=== PATIENT | male | born 1955 | race Caucasian/White ===

== ENCOUNTER 2016-09-08 15:23 | Emergency (ER) | payer MEDICARE, OTHER ==
[2016-09-08] MEDS ORDERED: NORMAL SALINE 1,000 ML IV ONE (15:36)
[2016-09-08] MEDS ORDERED: OSELTAMIVIR PHOSPHATE 75 MG CAPSULE PO ONE ×2 (15:37→15:56)
--- NOTE | 2016-09-08 15:44 | ERNOTE ---
Medical Problem HPI - Narrative Date of Service: 09/08/16 - General Chief Complaint: Flu Symptoms Time Seen by Provider: 09/08/16 15:33 Source: patient Exam Limitations: no limitations - Immun/Allergies/Home Medications Immunizations: IMMUNIZATION HX Immunizations Up to Date Yes History of Influenza Vaccine Yes Hx Pneumococcal Vaccination Yes Allergies/Adverse Reactions: Allergies amoxicillin trihydrate [From Augmentin] Allergy (Verified 09/08/16 17:12) misoprostol [From Cytotec] Allergy (Verified 09/08/16 17:12) potassium clavulanate [From Augmentin] Allergy (Verified 09/08/16 17:12) risperidone [From Risperdal] Allergy (Verified 09/08/16 17:12) Home Medications: HOME MEDICATIONS Budesonide [Pulmicort Respules] 4 ml IH DAILY 11/27/15 [Last Taken 05/07/16] Cholecalciferol (Vitamin D3) [Vitamin D3] 5,000 unit GT DAILY 11/27/15 [Last Taken 05/07/16] Emollient Base [Vanicream] 1 appl TP DAILY 11/27/15 [Last Taken 05/07/16] Glycerin/Witch Shelia [place] [Tucks Medicated Pads] 1 appl TP PRN PRN 11/27/15 [ Last Taken 05/07/16] Ketoconazole [Nizoral Shampoo] 1 appl TP DAILY 11/27/15 [Last Taken 05/07/16] Montelukast Sodium [Singulair] 10 mg GT DAILY 11/27/15 [Last Taken 05/07/16] Mupirocin [Bactroban] 1 appl TP PRN 11/27/15 [Last Taken 05/07/16] Parab/Cet Alc/Stryl Alc/Pg/Sls [Cetaphil Gentle Skin Cleanser] 1 appl TP DAILY 11/27/15 [Last Taken 05/07/16] diphenhydrAMINE HCL [Benadryl Elixir] 30 ml GT QID 11/27/15 [Last Taken 05/07/16 ] Gly/Dimeth/Petrolat,Wht/Water [Cetaphil Cream] 1 appl TP DAILY PRN #0 jar [Last Taken 05/07/16] Potassium Chloride [Potassium Chloride 40 meq/15ml Liquid] 40 meq JT Q6H btl 06 /03/16 [Last Taken 05/07/16] Albuterol Sulfate [Albuterol Sulfate 2.5 MG/0.5ML] 2.5 mg IH Q4H PRN #0 vial.neb 03/11/16 [Last Taken 05/07/16] Atropine Sulfate [Atropine 1% Ophthalmic Solution] 3 drop SL Q6H btl 03/11/16 [ Last Taken 05/07/16] Ziprasidone HCl [Geodon] 60 mg GT DAILY capsule 03/11/16 [Last Taken 05/07/16] Calcium Carbonate 1,250 mg GT Q6H 05/08/16 [Last Taken 05/07/16] Magnesium Hydroxide [Milk Of Magnesia] 30 ml GT DAILY 05/08/16 [Last Taken 05/07] Metoclopramide HCl [Reglan Solution] 20 ml GT Q6H 05/08/16 [Last Taken 05/07/16] Omeprazole [Prilosec] 40 mg PO QAM 05/08/16 [Last Taken 05/07/16] Promethazine HCl [Phenergan Syrup] 6.25 mg GT Q6H 05/08/16 [Last Taken 05/07/16] - History of Present History Narrative: Pt. comes in with ill feeling for three days with fever and diarrhea. Pt. was diagnosed with influenza A yesterday but has not received his first dose of Tamiflu at this time. Pt. reports that he was weak this morning but not SOB and his blood pressure was 75 systolic by the tiffany and 80 systolic by EMS. Review of Systems - Review of Systems Constitutional: Present: fever, chills, weakness, fatigue, malaise EYE: Present: no symptoms reported ENT: Present: no symptoms reported Respiratory: Present: cough. Absent: shortness of breath, wheezing Cardiology: Present: no symptoms reported. Absent: chest pain, palpitations, edema Gastrointestinal/Abdominal: Present: no symptoms reported. Absent: nausea, vomiting, diarrhea, abdominal pain Genitourinary: Present: no symptoms reported Musculoskeletal: Present: no symptoms reported. Absent: back pain, joint pain Skin: Present: no symptoms reported. Absent: rash, change in color Neurological: Present: no symptoms reported. Absent: headache, dizziness/light- headedness, numbness, tingling All Other Systems: All systems neg except as marked - Patient's Past Medical History Patient History - Medical: Anemia, Diabetes Type 2, Depression, Seizures Patient History - Cardiac/Respiratory: Asthma, CVA/Stroke, Deep Vein Thrombosis , Pneumonia, Home O2 Use Patient History - Cancer: No Hx of Cancer Patient History - Surgical Procedures: Colonoscopy, EGD, Other - Family History Father Family History - Medical: Family History - Cardiac/Respiratory: History Unknown Family History - Cancer: Lung, Other - heart problems Mother Family History - Medical: Arthritis Sister Family History - Medical: Other - Social History Living Situations: senior care Smoking Status: Former smoker Alcohol Use: none Drug Use: none Physical Exam - Physical Exam General Appearance: Present: wd/wn, alert, no apparent distress Eye Exam: Normal inspection: bilateral, PERRL: bilateral, EOMI: bilateral Ears, Nose, Throat: Present: normal ENT inspection, hearing grossly normal, normal pharynx Neck: Present: normal inspection, nontender. Absent: lymphadenopathy (R), lymphadenopathy (L) Respiratory: Present: no respiratory distress, normal breath sounds, no accessory muscle use, chest nontender, crackles - coarse upper airway noises. Absent: rales, rhonchi, stridor, wheezing Cardiovascular/Chest: Present: regular rate, rhythm, no murmur, normal peripheral pulses Gastrointestinal/Abdominal: Present: normal bowel sounds, nontender, nondistended, soft, no organomegaly Back Exam: Present: normal inspection, normal range of motion, no CVA tenderness , no vertebral tenderness Extremity Exam: Present: normal inspection, non-tender, no edema, normal range of motion Neurological Exam: Present: alert, oriented, normal mood/affect, motor weakness - previous CVA residual Skin Exam: Present: warm/dry, pallor ED Progress - Date and Time Seen: Date and Time: 09/08/16 17:40 Pt. blood pressure has been stable WNL while here corrected dehydration and acute fluid loss. Believe diarrhea is caused by Influenza A and will have pt. follow up with PCP this week. - Results and Orders Patient's Lab Results:: I have reviewed the patient's lab results. - Vital Signs Patient's Vital Signs:: I have reviewed the patient's vital signs. Vital Signs: Vital Signs 09/08/16 15:24 Temperature 37.6 C H Pulse Rate 104 H Respiratory 18 Rate Blood Pressure 106/71 O2 Sat by Pulse 94 Oximetry - X-Ray X-Ray #1 X-Ray: chest Interpretation: Interp. by me X-ray Comments: No consolidation, no infiltrate - Progress/Reassessment Chief Complaint: Flu Symptoms Progress:: Improved Departure - Departure Clinical Impression: Influenza A Disposition: [facility] Condition: Good Instructions: Influenza, Adult, [id number] Additional Instructions: Please continue Tamiflu as ordered. Follow up with PCP in 2-3 days.
[2016-09-08 16:04] LABS: Hematocrit 38.2 % (42.0-52.0); Hemoglobin 12.2 gm/dL (13.5-18.0); Mean Cell Volume 85.7 fl (78-100); Mean Corpuscular Hemoglobin 27.4 pg (27-31); Mean Corpuscular Hgb Conc 31.9 g/dl (32-36); Mean Platelet Volume 11.9 fl (6.0-9.5); Neutrophil # 4.9 K/mm3 (1.3-6.0); Neutrophil % 79.4 % (42-75.0); Platelet Count 185 K/mm3 (150-450); Red Blood Count 4.46 M/mm3 (4.7-6.0); Red Cell Distribution Width 14.7 % (11.5-14.0); White Blood Count 6.2 K/mm3 (4.0-10.5)
[2016-09-08 16:19] LABS: Albumin * 2.8 gm/dl (3.4-5.0); Anion Gap 16.6 mmol/L (6.8-13.8); BUN/Creatinine Ratio 21.7 (9.0-21.6); Bilirubin, Total 0.3 mg/dL (0.0-1.1); Ca. Corrected For Albumin 9.2 mg/dL (8.4-10.2); Calcium * 8.6 mg/dL (7.9-10.9); Carbon Dioxide 22.3 mmol/L (24-32.6); Potassium 3.9 mmol/L (3.4-4.6); Total Protein 6.6 gm/dL (6.2-8.2)
[2016-09-08 16:44] LABS: Urine Bilirubin Negative (NEGATIVE); Urine Ketone Negative (NEGATIVE); Urine Nitrite Negative (NEGATIVE); Urine Protein 30 mg/dL (NEGATIVE); Urine Urobilinogen Normal (NORMAL); Urine pH 8.5 pH (5.0-7.0)
[2016-09-08 17:07] LABS: Urine Appearance Slightly Cloudy; Urine Bacteria None Seen; Urine Blood 10 /ul (NEGATIVE); Urine Color Yellow; Urine RBC 0-5 /hpf (0-5); Urine WBC None Seen /hpf (0-5)
[2016-09-08 23:11] VITALS: BP 99/77
== END 2016-09-08 18:30 ==
LOC: ER 15:23
DX: J09.X2 Influenza due to identified novel influenza A virus with other respiratory manifestations (principal); Z87.891 Personal history of nicotine dependence

== ENCOUNTER 2016-11-26 07:22 | Emergency (ER) | payer MEDICARE, OTHER ==
--- OUTSIDE RECORDS SUMMARY | 2016-11-26 07:32 | XMS REPORT | Continuity of Care Document ---
:1955 Author Organization [facility] ([facility]) Address [address] [place] [address] Phone [phone] Care Team Providers Name Role Phone Xavier Burk Primary Care Provider [phone] Source Comments This disclosure is being made pursuant to the Care Everywhere program, applicable federal and state laws, and may not contain all informaitonavailable regarding this patient.[facility] ([facility]) Active Allergies and Adverse Reactions Allergen Noted Date Severity Reactions Comments Risperidone 11/20/2010 Unknown Current Medications Prescription Sig. Disp. Refills Start Date End Date Status albuterol (PROVENTIL) 2.5 Use 2.5 mg by Active mg/3 mL inhalation inhalation every solution 4 hours. doxepin (SINEQUAN) 10 mg Take 10 mg by Active capsule mouth at bedtime. fluticasone (FLONASE) 50 use 1 [place] into Active mcg/Actuation nasal spray each nostril 2 times daily. hydrochlorothiazide Take 12.5 mg by Active (HYDRODIURIL) 12.5 mg mouth daily. tablet LORazepam (ATIVAN) 0.5 mg Take 0.5 mg by Active tablet mouth 2 times daily. mirtazapine (REMERON) 7.5 Take 7.5 mg by Active mg tablet mouth daily. senna-docusate (SENOKOT-S) Take 1 Tab by Active 8.6-50 mg per tablet mouth daily. tamsulosin (FLOMAX) 0.4 mg Take 0.4 mg by Active ER capsule mouth daily. ziprasidone (GEODON) 60 mg Take 60 mg by Active cap mouth daily. misoPROStol 200 mcg tablet Take 1 Tab by 120 Tab 0 12/02/2010 Active mouth 4 times daily. Indications: Gastric Ulcer omeprazole (PRILOSEC) 2 Take 10 mL by 300 mL 11 12/02/2010 Active mg/mL Liqd liquid mouth daily. Indications: Gastric Ulcer Active Problems Problem Noted Date Cerebral palsy 11/29/2010 GI bleed 11/29/2010 Gastric ulcer 11/29/2010 Factor V Leiden mutation 11/29/2010 Social History Tobacco Use Types Packs/Day Years Used Date Never Assessed Last Filed Vital Signs Vital Sign Reading Time Taken Blood Pressure 104/71 12/03/2010 4:00 AM CDT Pulse 92 12/03/2010 4:00 AM CDT Temperature 37 C (98.6 F) 12/03/2010 4:00 AM CDT Respiratory Rate 20 12/03/2010 4:00 AM CDT Height 1.73 m (5' 8.11") 11/21/2010 5:35 PM CDT Weight 87.8 kg (193 lb 9 oz) 12/01/2010 10:00 AM CDT Body Mass Index 29.34 12/01/2010 10:00 AM CDT Oxygen Saturation 96% 12/03/2010 4:00 AM CDT Plan of Care Health Maintenance Due Date Last Done Comments HCV Screening 1955 Hepatitis B Vaccine (1 of 3 - Primary Series) 1955 Tdap Vaccine 1966 Lipid Disorder Screening 1973 Td Vaccine 1973 Colonoscopy 02/08/2005 Prostate Cancer Screening 2005 Zoster Vaccine 2015 Influenza Vaccine: Seasonal (#1) 03/30/2016 Results from Last 3 Months Not on file
--- NOTE | 2016-11-26 08:03 | ERNOTE ---
Medical Problem HPI - General Chief Complaint: General Assessment Time Seen by Provider: 11/26/16 07:25 Source: patient Exam Limitations: physical impairment - Immun/Allergies/Home Medications Immunizations: IMMUNIZATION HX Immunizations Up to Date Yes History of Influenza Vaccine Yes Hx Pneumococcal Vaccination No Allergies/Adverse Reactions: Allergies amoxicillin trihydrate [From Augmentin] Allergy (Verified 09/08/16 17:12) misoprostol [From Cytotec] Allergy (Verified 09/08/16 17:12) potassium clavulanate [From Augmentin] Allergy (Verified 09/08/16 17:12) risperidone [From Risperdal] Allergy (Verified 09/08/16 17:12) Home Medications: HOME MEDICATIONS Budesonide [Pulmicort Respules] 4 ml IH DAILY 11/27/15 [Last Taken 05/07/16] Cholecalciferol (Vitamin D3) [Vitamin D3] 5,000 unit GT DAILY 11/27/15 [Last Taken 05/07/16] Emollient Base [Vanicream] 1 appl TP DAILY 11/27/15 [Last Taken 05/07/16] Glycerin/Witch Shelia [place] [Tucks Medicated Pads] 1 appl TP PRN PRN 11/27/15 [ Last Taken 05/07/16] Ketoconazole [Nizoral Shampoo] 1 appl TP DAILY 11/27/15 [Last Taken 05/07/16] Montelukast Sodium [Singulair] 10 mg GT DAILY 11/27/15 [Last Taken 05/07/16] Mupirocin [Bactroban] 1 appl TP PRN 11/27/15 [Last Taken 05/07/16] Parab/Cet Alc/Stryl Alc/Pg/Sls [Cetaphil Gentle Skin Cleanser] 1 appl TP DAILY 11/27/15 [Last Taken 05/07/16] diphenhydrAMINE HCL [Benadryl Elixir] 30 ml GT QID 11/27/15 [Last Taken 05/07/16 ] Gly/Dimeth/Petrolat,Wht/Water [Cetaphil Cream] 1 appl TP DAILY PRN #0 jar [Last Taken 05/07/16] Potassium Chloride [Potassium Chloride 40 meq/15ml Liquid] 40 meq JT Q6H btl [Last Taken 05/07/16] Albuterol Sulfate [Albuterol Sulfate 2.5 MG/0.5ML] 2.5 mg IH Q4H PRN #0 vial.neb 03/11/16 [Last Taken 05/07/16] Atropine Sulfate [Atropine 1% Ophthalmic Solution] 3 drop SL Q6H btl 03/11/16 [ Last Taken 05/07/16] Ziprasidone HCl [Geodon] 60 mg GT DAILY capsule 03/11/16 [Last Taken 05/07/16] Calcium Carbonate 1,250 mg GT Q6H 05/08/16 [Last Taken 05/07/16] Magnesium Hydroxide [Milk Of Magnesia] 30 ml GT DAILY 05/08/16 [Last Taken 05/07] Metoclopramide HCl [Reglan Solution] 20 ml GT Q6H 05/08/16 [Last Taken 05/07/16] Omeprazole [Prilosec] 40 mg PO QAM 05/08/16 [Last Taken 05/07/16] Promethazine HCl [Phenergan Syrup] 6.25 mg GT Q6H 05/08/16 [Last Taken 05/07/16] - History of Present History Narrative: Pt brought by EMS from [facility] with report of PEG tube being displaced overnight. Unknown time of removal. Pt denies symptoms Review of Systems - Narrative Narrative: Pt decreased mental capability and it is difficult to get information out of him. - Review of Systems Constitutional: Present: no symptoms reported EYE: Present: no symptoms reported ENT: Present: no symptoms reported Respiratory: Present: no symptoms reported Cardiology: Present: no symptoms reported - Patient's Past Medical History Patient History - Medical: Anemia, Diabetes Type 2, Depression, Seizures Patient History - Cardiac/Respiratory: Pneumonia Patient History - Cancer: No Hx of Cancer Patient History - Surgical Procedures: Colonoscopy, EGD, Other Patient History - Other: None - Family History Father Family History - Medical: Family History - Cardiac/Respiratory: History Unknown Mother Family History - Medical: Arthritis Sister Family History - Medical: Other - Social History Living Situations: fdc Abuse History: No History of abuse Psych History: Hx of Depression, Hx of Schizophrenia, Current tx/ever been on anti-depressants or anti-anxiety meds Alcohol Use: none Drug Use: none - Immunizations Immunizations Up to Date: Yes Hx Pneumococcal Vaccination: No History of Influenza Vaccine: Yes Physical Exam - Physical Exam General Appearance: Present: wd/wn, alert, no apparent distress Respiratory: Present: no respiratory distress, normal breath sounds Cardiovascular/Chest: Present: regular rate, rhythm Gastrointestinal/Abdominal: Present: normal bowel sounds, nontender, other - Stoma for peg tube in good condition, slightly irritated, slightly open, no bleeding or purlence. ED Progress - Vital Signs Vital Signs: Vital Signs 11/26/16 07:32 Temperature 36.7 C Pulse Rate 72 Respiratory 17 Rate Blood Pressure 100/66 O2 Sat by Pulse 95 Oximetry - Progress/Reassessment Chief Complaint: General Assessment Progress Note-Subjective: 11/26/16 07:51 Spoke with pt's PCP Dr. Burk. He believes that the patient has a "special type" of tube but does not know specifics off the top of his head. Believes that yesterday they had a replacement left but he is not sure. Nursing contacting [facility] for more information. He had 24f 10 cc PEG tube but they do not have any left. - Transfer of Care Physician Sign Out: Bi Johansen Receiving Physician: Delta Crowder - PEG tube Procedures Additional Procedures: gastric tube replacement - Placed 16f rosas catheter to keep the stoma open until PEG tube could be located. No complications Complications: Pt abby procedure well Departure - Departure Clinical Impression: Displacement of gastrointestinal device Qualifiers: GI device type detail: other GI device Encounter type: initial encounter Qualified Code(s): T85.528A - Displacement of other gastrointestinal prosthetic devices, implants and grafts, initial encounter
[2016-11-26 12:13] VITALS: BP 92/63
== END 2016-11-26 12:22 ==
LOC: ER 07:22
PROC: 3E0G7KZ Introduction of Other Diagnostic Substance into Upper GI, Via Natural or Artificial Opening (ICD-10-PCS; principal; 2016-11-26)
PROC: 0WHP33Z Insertion of Infusion Device into Gastrointestinal Tract, Percutaneous Approach (ICD-10-PCS; 2016-11-26)
PROC: BD12YZZ Fluoroscopy of Stomach using Other Contrast (ICD-10-PCS; 2016-11-26)
DX: T85.528A Displacement of other gastrointestinal prosthetic devices, implants and grafts, initial encounter (principal)

== ENCOUNTER 2017-03-21 16:31 | Emergency (ER) | payer MEDICARE, OTHER ==
--- NOTE | 2017-03-21 17:26 | ERNOTE ---
Medical Problem HPI - Narrative Date of Service: 03/21/17 - General Chief Complaint: General Assessment Time Seen by Provider: 03/21/17 17:23 Source: patient Exam Limitations: no limitations - Immun/Allergies/Home Medications Immunizations: IMMUNIZATION HX Immunizations Up to Date Yes History of Influenza Vaccine Yes Hx Pneumococcal Vaccination No Allergies/Adverse Reactions: Allergies amoxicillin trihydrate [From Augmentin] Allergy (Verified 11/26/16 09:39) misoprostol [From Cytotec] Allergy (Verified 11/26/16 09:39) potassium clavulanate [From Augmentin] Allergy (Verified 11/26/16 09:39) risperidone [From Risperdal] Allergy (Verified 11/26/16 09:39) Home Medications: HOME MEDICATIONS Budesonide [Pulmicort Respules] 4 ml IH DAILY 11/27/15 [Last Taken 05/07/16] Cholecalciferol (Vitamin D3) [Vitamin D3] 5,000 unit GT DAILY 11/27/15 [Last Taken 05/07/16] Albuterol Sulfate [Albuterol Sulfate 2.5 MG/0.5ML] 2.5 mg IH Q4H PRN #0 vial.neb 03/11/16 [Last Taken 05/07/16] Calcium Carbonate 5 ml GT QID 05/08/16 [Last Taken 05/07/16] Acetaminophen [Tylenol] 650 mg PO Q4H PRN 11/26/16 [Last Taken Unknown] Acetylcysteine [Mucomyst 10%] 4 ml NEB QID 11/26/16 [Last Taken Unknown] Activated Charcoal [CharcoCaps] 260 mg PEG QID 11/26/16 [Last Taken Unknown] Aspirin [Aspir-Low] 81 mg PEG DAILY 11/26/16 [Last Taken Unknown] Atropine Sulfate [Atropine 1% Ophthalmic Solution] 1 drop SL QID 11/26/16 [Last Taken Unknown] Docusate Sodium [Doc-Q-Lace] 100 mg PEG BID PRN 11/26/16 [Last Taken Unknown] Furosemide [Lasix] 40 mg PO DAILY 11/26/16 [Last Taken Unknown] Magnesium Hydroxide [Milk Of Magnesia] 30 ml PEG HS 11/26/16 [Last Taken Unknown ] Metoclopramide HCl [Reglan Solution] 5 ml PEG Q6H 11/26/16 [Last Taken Unknown] Montelukast Sodium [Singulair] 10 mg PEG DAILY 11/26/16 [Last Taken Unknown] Nutritional Supplement [Osmolite 1.2 [place]] 0 ml PEG Q4H 11/26/16 [Last Taken Unknown] Omeprazole [Prilosec] 10 ml PEG DAILY 11/26/16 [Last Taken Unknown] Polyethylene Glycol 3350 [Miralax] 17 gm PEG DAILY PRN 11/26/16 [Last Taken Unknown] Potassium Chloride [Potassium Chloride 40 meq/15ml Liquid] 15 ml PEG QID [Last Taken Unknown] Promethazine HCl 5 ml PEG Q6H PRN 11/26/16 [Last Taken Unknown] Saliva Stimulant Agents Comb.3 [Biotene Moisturizing Mouth] 44.3 ml MM DAILY PRN 11/26/16 [Last Taken Unknown] Simethicone [Infants' Gas Relief] 4.8 ml PEG QID 11/26/16 [Last Taken Unknown] Sucralfate [Carafate Suspension] 10 ml PEG QID 11/26/16 [Last Taken Unknown] Ziprasidone HCl 40 mg PEG DAILY 11/26/16 [Last Taken Unknown] - History of Present History Narrative: Concern for feeding tube placement, but just fed through tube an hour ago with no problem. Timing: other Severity: mild Modifying Factors - (Improves): Present: other Modifying Factors - (Worsens): Present: other Review of Systems - Review of Systems Constitutional: Present: no symptoms reported EYE: Present: no symptoms reported ENT: Present: no symptoms reported Respiratory: Present: no symptoms reported Cardiology: Present: no symptoms reported Gastrointestinal/Abdominal: Present: See HPI Genitourinary: Present: no symptoms reported Musculoskeletal: Present: no symptoms reported Skin: Present: no symptoms reported Neurological: Present: no symptoms reported Endocrine: Present: no symptoms reported Hematologic/Lymphatic: Present: no symptoms reported Psych: Present: no symptoms reported All Other Systems: All systems neg except as marked - Patient's Past Medical History Patient History - Medical: Anemia, Diabetes Type 2, Depression, Seizures Patient History - Cardiac/Respiratory: Pneumonia Patient History - Cancer: No Hx of Cancer Patient History - Surgical Procedures: Colonoscopy, EGD, Other Patient History - Other: None - Family History Father Family History - Medical: Family History - Cardiac/Respiratory: History Unknown Mother Family History - Medical: Arthritis Sister Family History - Medical: Other - Social History Living Situations: penitentiary Abuse History: No History of abuse Psych History: Hx of Depression, Hx of Schizophrenia, Current tx/ever been on anti-depressants or anti-anxiety meds Alcohol Use: none Drug Use: none - Immunizations Immunizations Up to Date: Yes Hx Pneumococcal Vaccination: No History of Influenza Vaccine: Yes Physical Exam - Physical Exam General Appearance: Present: wd/wn, alert, no apparent distress Head Exam: Present: normal inspection, no evidence of injury Eye Exam: Normal inspection: bilateral, PERRL: bilateral, EOMI: bilateral Ears, Nose, Throat: Present: normal ENT inspection Neck: Present: normal inspection Respiratory: Present: no respiratory distress, normal breath sounds Cardiovascular/Chest: Present: regular rate, rhythm, no murmur Gastrointestinal/Abdominal: Present: normal bowel sounds, nontender, nondistended, soft, no organomegaly, other - feeding tube Back Exam: Present: normal inspection Extremity Exam: Present: normal inspection, no edema Neurological Exam: Present: alert, oriented, other - odd mood and affect, spasticiy due to cerebral palsy Skin Exam: Present: normal color, warm/dry ED Progress - Vital Signs Patient's Vital Signs:: I have reviewed the patient's vital signs. Vital Signs: Vital Signs 03/21/17 16:53 Temperature 36.9 C Pulse Rate 81 Respiratory 16 Rate Blood Pressure 95/58 O2 Sat by Pulse 95 Oximetry - CT/Ultrasound CT/Ultrasound Narrative: I have reviewed the radiologist's CT scan reports, which describes the feeding tube in the correct place, and the large bowel as the same as always. - Progress/Reassessment Chief Complaint: General Assessment Progress:: Unchanged Departure - Departure Clinical Impression: Megacolon, acquired, functional Disposition: Home self-care Condition: Good Instructions: Eating Disorders Additional Instructions: Feeding tube in correct position, may be discharged Referrals: Xavier Paniagua MD [Primary Care Provider] -
[2017-03-21] MEDS ORDERED: SIMETHICONE 80 MG TAB.CHEW ONE (18:54)
[2017-03-21 19:10] VITALS: BP 115/84
== END 2017-03-21 19:25 | disposition home or self-care (01) ==
LOC: ER 16:31
DX: K59.39 Other megacolon (principal)

== ENCOUNTER 2017-03-28 11:20 | Emergency (ER) | payer MEDICARE, OTHER ==
--- NOTE | 2017-03-28 12:26 | ERNOTE ---
Medical Problem HPI - Narrative Date of Service: 03/28/17 - General Chief Complaint: General Assessment Time Seen by Provider: 03/28/17 11:23 Source: EMS Exam Limitations: physical impairment - Immun/Allergies/Home Medications Immunizations: IMMUNIZATION HX Immunizations Up to Date Yes History of Influenza Vaccine Yes Hx Pneumococcal Vaccination No Allergies/Adverse Reactions: Allergies amoxicillin trihydrate [From Augmentin] Allergy (Verified 11/26/16 09:39) misoprostol [From Cytotec] Allergy (Verified 11/26/16 09:39) potassium clavulanate [From Augmentin] Allergy (Verified 11/26/16 09:39) risperidone [From Risperdal] Allergy (Verified 11/26/16 09:39) Home Medications: HOME MEDICATIONS Budesonide [Pulmicort Respules] 4 ml IH DAILY 11/27/15 [Last Taken 05/07/16] Cholecalciferol (Vitamin D3) [Vitamin D3] 5,000 unit GT DAILY 11/27/15 [Last Taken 05/07/16] Albuterol Sulfate [Albuterol Sulfate 2.5 MG/0.5ML] 2.5 mg IH Q4H PRN #0 vial.neb 03/11/16 [Last Taken 05/07/16] Calcium Carbonate 5 ml GT QID 05/08/16 [Last Taken 05/07/16] Acetaminophen [Tylenol] 650 mg PO Q4H PRN 11/26/16 [Last Taken Unknown] Acetylcysteine [Mucomyst 10%] 4 ml NEB QID 11/26/16 [Last Taken Unknown] Activated Charcoal [CharcoCaps] 260 mg PEG QID 11/26/16 [Last Taken Unknown] Aspirin [Aspir-Low] 81 mg PEG DAILY 11/26/16 [Last Taken Unknown] Atropine Sulfate [Atropine 1% Ophthalmic Solution] 1 drop SL QID 11/26/16 [Last Taken Unknown] Docusate Sodium [Doc-Q-Lace] 100 mg PEG BID PRN 11/26/16 [Last Taken Unknown] Furosemide [Lasix] 40 mg PO DAILY 11/26/16 [Last Taken Unknown] Magnesium Hydroxide [Milk Of Magnesia] 30 ml PEG HS 11/26/16 [Last Taken Unknown ] Metoclopramide HCl [Reglan Solution] 5 ml PEG Q6H 11/26/16 [Last Taken Unknown] Montelukast Sodium [Singulair] 10 mg PEG DAILY 11/26/16 [Last Taken Unknown] Nutritional Supplement [Osmolite 1.2 Cholo] 0 ml PEG Q4H 11/26/16 [Last Taken Unknown] Omeprazole [Prilosec] 10 ml PEG DAILY 11/26/16 [Last Taken Unknown] Polyethylene Glycol 3350 [Miralax] 17 gm PEG DAILY PRN 11/26/16 [Last Taken Unknown] Potassium Chloride [Potassium Chloride 40 meq/15ml Liquid] 15 ml PEG QID [Last Taken Unknown] Promethazine HCl 5 ml PEG Q6H PRN 11/26/16 [Last Taken Unknown] Saliva Stimulant Agents Comb.3 [Biotene Moisturizing Mouth] 44.3 ml MM DAILY PRN 11/26/16 [Last Taken Unknown] Simethicone [Infants' Gas Relief] 4.8 ml PEG QID 11/26/16 [Last Taken Unknown] Sucralfate [Carafate Suspension] 10 ml PEG QID 11/26/16 [Last Taken Unknown] Ziprasidone HCl 40 mg PEG DAILY 11/26/16 [Last Taken Unknown] - History of Present History Narrative: Patient has long standing G-tube. This was pulled out today. Pt cannot provide any history. No fever or distress. Timing: other - G-tube came out Modifying Factors - (Improves): Present: other - nothing Modifying Factors - (Worsens): Present: other - nothing Review of Systems - Narrative Narrative: unable given chronic condition - Patient's Past Medical History Patient History - Medical: Anemia, Anxiety, Diabetes Type 2, Depression, Seizures Patient History - Cardiac/Respiratory: Pneumonia Patient History - Cancer: No Hx of Cancer Patient History - Surgical Procedures: Colonoscopy, EGD, Other Patient History - Other: None - Family History Father Family History - Medical: Family History - Cardiac/Respiratory: History Unknown Mother Family History - Medical: Arthritis Sister Family History - Medical: Other - Social History Living Situations: longterm Abuse History: No History of abuse Psych History: Hx of Anxiety, Hx of Depression, Hx of Schizophrenia, Current tx/ ever been on anti-depressants or anti-anxiety meds Smoking Status: Former smoker Alcohol Use: none Drug Use: none - Immunizations Immunizations Up to Date: Yes Hx Pneumococcal Vaccination: No History of Influenza Vaccine: Yes Physical Exam - Physical Exam General Appearance: Present: alert, no apparent distress Respiratory: Present: no respiratory distress Cardiovascular/Chest: Present: regular rate, rhythm Gastrointestinal/Abdominal: Present: normal bowel sounds, soft, other - G-tube site without G-tube in place Neurological Exam: Present: alert Skin Exam: Present: warm/dry ED Progress - Vital Signs Patient's Vital Signs:: I have reviewed the patient's vital signs. Vital Signs: Vital Signs 03/28/17 11:24 Temperature 37.5 C Pulse Rate 93 Respiratory 17 Rate Blood Pressure 107/68 O2 Sat by Pulse 94 Oximetry - Progress/Reassessment Chief Complaint: General Assessment Progress Note-Subjective: 03/28/17 12:[address] Liz in the ED. He will arrange further G-tube management. Departure - Departure Clinical Impression: Gastrostomy tube dependent Disposition: Home self-care Condition: Stable Additional Instructions: You will be notified when the appropriate G-Tube arrives. Return for any problems.
[2017-03-28 12:32] VITALS: BP 99/66
--- NOTE | 2017-03-28 12:32 | PN ---
Dictated Progress Note - Date and Time Seen: Date: 03/28/17 Time: 12:28 - Progress Note Narrative: Vital Signs - Last Taken Temp 37.5 C 03/28/17 11:24 Pulse 93 03/28/17 11:24 Resp 17 03/28/17 11:24 BP 107/68 03/28/17 11:24 Pulse Ox 94 03/28/17 11:24 The patient is a 62-year-old male, well-known to me, with a long-standing feeding tube. He is currently at the [facility]. His feeding tube came out today and he was brought to the ER. The balloon on the tube leaks and cannot be inflated. A small Alex catheter was placed in the stomach and I was asked to see the patient. Historically, the patient initially had placement of a PEG gastrostomy tube due to chronic aspiration and difficulty swallowing. He has an element of gastroparesis, and because of repeated vomiting, the gastric feeding tube was exchanged for a low profile gastrojejunostomy tube which was passed with EGD. This was done in November 2015. In reviewing old x-rays, the gastrojejunostomy tube was in place on x-ray in February 2016, however beginning in October of this year there are a series of radiology exams obtained for tube placement which demonstrated only a gastrostomy-type tube. Most recently on 03/21/[address] scan was obtained to verify gastrostomy tube placement--- apparently the tube that malfunctioned today. On exam there is minimal irritation around the tube site. The previously damaged area on the anterior abdominal wall remains healed. PROCEDURE: Replacement of gastrostomy tube. The Alex catheter was removed and a Eulogio-Bailey G 24fr low profile gastrostomy tube placed and the balloon inflated. The stem on this tube is 1.7 cm (the patient usually has a 3 cm stem) however the device will rotate and skin pressure does not appear to be excessive. A split 2 x 2 was placed for dressing. RECOMMEND: The appliances to care for the tube were sent back to the [facility] with the patient. The tube may be used as usual. I will contact materials management and order in a new tube with a 3 cm stem. We will contact the [facility] when that arrives, and the tube can be exchanged in the office.
== END 2017-03-28 12:30 ==
LOC: ER 11:20
PROC: 2W03XYZ Change Other Device on Abdominal Wall (ICD-10-PCS; principal; 2017-03-28)
DX: K94.23 Gastrostomy malfunction (principal)

== ENCOUNTER 2018-12-22 02:35 | Inpatient (IN) ==
[2018-12-22] MEDS ORDERED: ALBUTEROL SULFATE 2.5 MG/0.5 ML VIAL.NEB IH ONE (02:39)
--- NOTE | 2018-12-22 02:54 | ERNOTE ---
Fever HPI - General Chief Complaint: Fever Stated Complaint: sob Time Seen by Provider: 12/22/18 02:39 Source: EMS, group home records Exam Limitations: clinical condition, physical impairment - Immunization Immunizations: IMMUNIZATION HX Immunizations Up to Date Yes History of Influenza Vaccine Yes Hx Pneumococcal Vaccination No - History of Present Illness Initial Comments: Pt brought here from the [facility] with complaint of fever. Pt has had history of aspiration pneumonia. Timing/Duration: this morning Fever Severity/Quality: greater than 100.5 F Fever Therapy LIFESTYLE DIRECTOR: Tylenol Associated Symptoms: Present: cough Allergies levofloxacin [From Levaquin] Allergy (Mild, Verified 12/22/18 02:42) amoxicillin trihydrate [From Augmentin] Allergy (Verified 12/22/18 02:42) misoprostol [From Cytotec] Allergy (Verified 12/22/18 02:42) potassium clavulanate [From Augmentin] Allergy (Verified 12/22/18 02:42) risperidone [From Risperdal] Allergy (Verified 12/22/18 02:42) Home Medications Medication Instructions Recorded Last Taken Calcium Carbonate 5 ml PEG QID 05/08/16 05/07/16 Nutritional Supplement [Osmolite 0 ml PEG Q4H 11/26/16 Unknown 1.2 Cholo] Saliva Stimulant Agents Comb.3 44.3 ml MM DAILY PRN 11/26/16 Unknown [Biotene Moisturizing Mouth] Simethicone [Infants' Gas Relief] 4.8 ml PEG QID 11/26/16 Unknown cetirizine 10 mg tablet 10 mg PEG DAILY 03/18/18 Unknown cholecalciferol (vitamin D3) 5,000 5,000 unit PEG DAILY 03/18/18 Unknown unit capsule docusate sodium 50 mg/5 mL oral 200 mg PEG QID ml 03/18/18 Unknown liquid furosemide 40 mg tablet 40 mg PEG DAILY 03/18/18 Unknown omeprazole magnesium 2.5 mg oral 2.5 mg PEG DAILY ea 03/18/18 Unknown suspension,delayed release ziprasidone 20 mg capsule 20 mg PEG DAILY cap 05/12/18 Unknown acetaminophen 325 mg capsule 650 mg PEG Q4H PRN cap 06/09/18 Unknown albuterol sulfate 2.5 mg/3 mL 2.5 mg IH QID 8 Days #96 ml 06/09/18 Unknown (0.083 %) solution for nebulization guaifenesin 100 mg/5 mL oral liquid 20 ml PEG Q4H PRN ml 06/09/18 Unknown potassium chloride 40 mEq/15 mL 40 meq PEG DAILY ml 06/09/18 Unknown oral liquid sodium chloride 0.9 % for 3 ml IH Q4H PRN 06/09/18 Unknown nebulization sodium chloride-aloe vera nasal gel 1 applic TP 4-6XD PRN #14.1 g 09/02/18 Unknown acetylcysteine 200 mg/mL (20 %) 3 ml IH BID 1 Days #6 ml 10/04/18 Unknown solution aspirin 81 mg chewable tablet 81 mg PEG DAILY #28 tab 11/03/18 Unknown atropine 1 % eye drops 1 drp SL QID PRN 25 Days #5 ml 11/03/18 Unknown docusate sodium 50 mg/5 mL oral 100 mg FEEDING TUBE BID PRN 11/03/18 Unknown liquid guaifenesin 100 mg/5 mL oral liquid 10 ml PEG Q4H 11/03/18 Unknown ipratropium-albuterol 0.5 mg-3 3 ml IH QID PRN #90 ml 11/03/18 Unknown mg(2.5 mg base)/3 mL nebulization soln metoclopramide 5 mg/5 mL oral 5 mg PEG Q6H ml 11/03/18 Unknown solution nystatin 100,000 unit/gram topical 1 applic TP BID PRN #30 g 11/03/18 Unknown powder sucralfate 1 gram tablet 1 g PEG QID #112 tab 11/03/18 Unknown Magnesium Hydroxide [Milk Of 30 ml PEG DAILY PRN 12/22/18 Unknown Magnesia] Montelukast Sodium [Singulair] 10 mg PEG DAILY 12/22/18 Unknown Potassium Chloride 15 ml PEG DAILY 12/22/18 Unknown Review of Systems - Narrative Narrative: Difficult to get ROS due to patient condition. - Review of Systems Constitutional: Present: fever. Absent: recent illness Respiratory: Present: cough, short of breath Fever EXAM - Physical Exam General Appearance: Present: WD/WN, no apparent distress Eye Exam: bilateral eye: normal inspection ENT Exam: Present: hearing grossly normal, pharynx normal Neck: Present: normal inspection Respiratory: Present: no respiratory distress, wheezing - expiratory, low Cardiovascular/Chest: Present: regular rate, rhythm, no chest tenderness Gastrointestinal/Abdominal: Present: normal bowel sounds. Absent: distended Extremity: Present: non-tender, normal inspection Neurologic: Present: supervisor in circuit testing II-XII nml as tested, alert Skin Exam: Present: normal color, warm/dry, no cyanosis Lymphatic: Present: no adenopathy ED Progress - PROGRESS/REASSESSMENT Condition: Improved Progress Note-Subjective: 12/22/18 03:[address] Park he agrees with admission. - VITAL SIGNS Patient's Vital Signs:: I have reviewed the patient's vital signs. Vital Signs - Last Taken Temp 38 C 12/22/18 02:35 Pulse 102 H 12/22/18 02:35 Resp 19 12/22/18 02:35 BP 89/56 L 12/22/18 02:35 Pulse Ox 92 L 12/22/18 02:35 - RESULTS AND ORDERS Patient's Lab Results:: I have reviewed the patient's lab results. Results and Orders: 12/22/18 03:26 Laboratory Tests 12/22/18 12/22/18 12/22/18 02:53 02:53 02:53 WBC 19.2 H Hgb 12.9 L Hct 39.7 L Plt Count 308 Neutrophils % 88.7 H Sodium 138 Potassium 3.8 Chloride 101 BUN 26 H Creatinine 1.21 Random Glucose 107 Lactic Acid, Venous 2.5 H* Calcium 8.9 Total Bilirubin 1.0 AST 17 ALT 17 L Alkaline Phosphatase 142 Troponin I Less than 0.017 B-Natriuretic Peptide 172 - X-Ray X-Ray #1 XRAY: chest X-Ray Interpretation: Interp. by me X-Ray Comments: LLL infiltrate. No effusion or pneumothorax Departure - Departure Clinical Impression: Pneumonia Qualifiers: Pneumonia type: due to unspecified organism Laterality: left Lung location: lower lobe of lung Qualified Code(s): J18.1 - Lobar pneumonia, unspecified o rganism Sepsis Qualifiers: Sepsis type: sepsis due to unspecified organism Qualified Code(s): A41.9 - Sepsis, unspecified organism Disposition: Still a patient Condition: Stable
[2018-12-22] MEDS ORDERED: NORMAL SALINE 1,000 ML IV ONE (02:55)
[2018-12-22 02:57] LABS: Hematocrit 39.7 % (42.0-52.0); Hemoglobin 12.9 gm/dL (13.5-18.0); Mean Cell Volume 81.9 fl (78-100); Mean Corpuscular Hemoglobin 26.6 pg (27-31); Mean Corpuscular Hgb Conc 32.5 g/dl (32-36); Mean Platelet Volume 10.9 fl (8-11.3); Neutrophil % 88.7 % (42-75.0); Platelet Count 308 K/mm3 (150-450); Red Blood Count 4.85 M/mm3 (4.7-6.0); Red Cell Distribution Width 14.5 % (11.5-14.0); White Blood Count 19.2 K/mm3 (4.0-10.5)
[2018-12-22 03:16] LABS: BUN/Creatinine Ratio 21.5 (9.0-21.6); Blood Urea Nitrogen 26 mg/dL (6-23); Glucose * 107 mg/dL (70-110); Sodium 138 mmol/L (132-142)
[2018-12-22 03:17] LABS: ALT 17 U/L (19-67); AST 17 U/L (0-48); Albumin * 3.1 gm/dl (3.4-5.0); Alkaline Phosphatase * 142 U/L (50-170); Anion Gap 14.7 mmol/L (6.8-13.8); BNP * 172 pg/mL (5-175); Ca. Corrected For Albumin 9.3 mg/dL (8.4-10.2); Calcium * 8.9 mg/dL (7.9-10.9); Carbon Dioxide 26.1 mmol/L (24-32.6); Chloride 101 mmol/L (97-106); Potassium 3.8 mmol/L (3.4-4.6); Total Protein 7.1 gm/dL (6.2-8.2); Troponin I Less than 0.017 ng/mL (0.00-0.10)
[2018-12-22] MEDS ORDERED: CEFEPIME HCL 1 GM/100 ML BAG IV ONE (03:27)
[2018-12-22 03:43] LABS: Urine Bilirubin Negative (NEGATIVE); Urine Blood 25 /ul (NEGATIVE); Urine Ketone Negative (NEGATIVE); Urine Nitrite Negative (NEGATIVE); Urine Protein Negative (NEGATIVE); Urine Urobilinogen Normal (NORMAL)
[2018-12-22 03:52] LABS: Urine Amorphous Sediment Few - 1+ (NONE-FEW); Urine Appearance Clear (CLEAR); Urine Bacteria TRACE; Urine Color Yellow; Urine WBC TRACE /hpf (0-5)
[2018-12-22] MEDS ORDERED: GENTAMICIN SULFATE 80 MG in DEXTROSE 5 % IN WATER 100 ML IV SCH ×4 (04:00→06:30)
[2018-12-22] MEDS: NORMAL SALINE 1,000 ML IV PRN ×5 (04:25→21:34)
[2018-12-22 08:52] LABS: Hematocrit 34.7 % (42.0-52.0); Mean Cell Volume 84.2 fl (78-100); Mean Corpuscular Hemoglobin 26.7 pg (27-31); Mean Corpuscular Hgb Conc 31.7 g/dl (32-36); Mean Platelet Volume 11.5 fl (8-11.3); Neutrophil # 12.3 K/mm3 (1.3-6.0); Neutrophil % 82.3 % (42-75.0); Platelet Count 241 K/mm3 (150-450); Red Blood Count 4.12 M/mm3 (4.7-6.0); Red Cell Distribution Width 14.6 % (11.5-14.0); White Blood Count 14.9 K/mm3 (4.0-10.5)
[2018-12-22 09:06] LABS: Anion Gap 11.7 mmol/L (6.8-13.8); BUN/Creatinine Ratio 21.5 (9.0-21.6); Calcium * 7.6 mg/dL (7.9-10.9); Carbon Dioxide 25.1 mmol/L (24-32.6); Estimated Creat Clear 78.7; Potassium 3.8 mmol/L (3.4-4.6)
--- NOTE | 2018-12-22 10:14 | HP ---
Chief Complaint - Chief Complaint Date of Service: 12/22/18 Time of Service: 07:45 Chief Complaint: fever, cough, audible rhonchi, hypotension History of Present Illness: Samuel Pham is a 63-year-old male residents at the [facility] who has a long-standing history of cerebral palsy. He has had several pneumonias in the past. He became short of breath with gurgling sounds and breathing and his blood pressure was found to be low. He also had a slight temperature of 38degrees. He was brought to the emergency room and evaluated there and was admitted about 330 this morning. Initially I was told that Dr. Matilda pitts was his PCP but then later found out that April Pak CNP is his PCP. He was admitted for sepsis and pneumonia. The initial thought was that there was a left lower lobe pneumonia but in reviewing the initial chest x-ray I cannot see it and the radiologist did not see it either. However after rehydrating him through the night and repeating the chest x-ray this morning the x-ray does show a faint left lower lobe infiltrate. He cannot effectively cough out the mucus from his trachea and pharynx. His initial sepsis evaluation was positive for lactic acid elevated at 2.5, fever 38.2, leukocytosis with bandemia. He has not had tachycardia. He has some mild tachypnea originally rate of 22. On reevaluation his respiratory rate is 18 by my count. His second lactic acid had returned to normal at 1.1. His blood pressure has remained in the upper 80s systolic in the last pressure is 87 systolic. His mean arterial pressure has been 62, 62, and 63. He has now had nearly 4 L of fluid bolus. If his pressure does not come back to above 90 then I will move him to SCU and start pressors. He is alert and conversant and answers questions appropriately. He has a feeding tube and does not eat orally. He has severe bilateral foot drop. He is unable to sit and stand and transfer independently due to his cerebral palsy.. 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 Cerebral palsy (Chronic) Eczema (Chronic) Insomnia (Chronic) Gastrostomy tube dependent (Chronic) Bronchitis Rash due to allergy blood transfusion subclavian port Surgical History: Surgical History (Updated 12/22/18 @ 04:51 by April Chaudhry RN) Hernia Repair H/O esophagogastroduodenoscopy with biopsy. Placement of 24 fr PEG tube History of colonoscopy 07/10/05, 03/10/2016. History of gastrostomy tube placement Onset Date: ~12/06/15 S/P percutaneous endoscopic gastrostomy (PEG) tube placement Onset Date: ~10/28 12/08 Family History: Family History (Updated 03/18/18 @ 11:56 by Cynthia Wagner LPN) Brother Alive and well Father Lung cancer Mother Arthritis Sister Guillain Pop syndrome Social History: Patient Lives/Resources [facility] Utilized Occupation Disabled Preferred Language [place] Do you have any mormon or Yes: Jehovah'S Witness cultural preference? Smoking Status Former smoker Have you smoked in the past 12 No months Abuse History No History of abuse Psych History Hx of Anxiety,Hx of Depression,Hx of Schizophrenia,Currently on Meds Alcohol Use none Drug Use none (Last Updated 11/21/18 @ 08:21 by Cynthia Matson DPM) No Social History Section defined Review Of Systems (GEN) - Review of Systems Generalized/Overall Review: Present: Weakness, Fever, Malaise EENTM: Present: No Symptoms Reported Respiratory: Present: Cough, Stridor Cardiac: Present: No Symptoms Reported. Absent: Edema, Palpitations Abdominal: Present: No Symptoms Reported, Other - He has a PEG tube in place Genitourinary: Present: No Symptoms Reported Musculoskeletal: Present: No Symptoms Reported Neurological: Present: Pre-existing Deficit - With cerebral palsy, Other Skin: Present: No Symptoms Reported Endocrine: Present: No Symptoms Reported Misc: All systems neg except as marked Immunizations: IMMUNIZATION HX Immunizations Up to Date Yes History of Influenza Vaccine Yes Hx Pneumococcal Vaccination No Allergies/Adverse Reactions: Allergies Allergy/AdvReac Type Severity Reaction Status Date / Time levofloxacin [From Levaquin] Allergy Mild Verified 12/22/18 04:52 amoxicillin trihydrate Allergy Verified 12/22/18 04:52 [From Augmentin] misoprostol [From Cytotec] Allergy Verified 12/22/18 04:52 potassium clavulanate Allergy Verified 12/22/18 04:52 [From Augmentin] risperidone [From Risperdal] Allergy Verified 12/22/18 04:52 Home Medications: HOME MEDICATIONS Calcium Carbonate 5 ml PEG QID 05/08/16 [Last Taken 05/07/16] Saliva Stimulant Agents Comb.3 [Biotene Moisturizing Mouth] 1 spray MM DAILY PRN 11/26/16 [Last Taken Unknown] Simethicone [Infants' Gas Relief] 4.8 ml PEG QID 11/26/16 [Last Taken Unknown] cetirizine 10 mg tablet 10 mg PEG QPM 03/18/18 [Last Taken Unknown] cholecalciferol (vitamin D3) 5,000 unit capsule 5,000 unit PEG DAILY 03/18/18 [Last Taken Unknown] docusate sodium 50 mg/5 mL oral liquid 10 ml PEG BID PRN ml 03/18/18 [Last Taken Unknown] furosemide 40 mg tablet 40 mg PEG DAILY 03/18/18 [Last Taken Unknown] ziprasidone 20 mg capsule 20 mg PEG DAILY cap 05/12/18 [Last Taken Unknown] acetaminophen 325 mg capsule 650 mg PEG Q4H PRN cap 06/09/18 [Last Taken Unknown] albuterol sulfate 2.5 mg/3 mL (0.083 %) solution for nebulization 2.5 mg IH QID 8 Days #96 ml 06/09/18 [Last Taken Unknown] guaifenesin 100 mg/5 mL oral liquid 20 ml PEG Q4H PRN ml 06/09/18 [Last Taken Unknown] potassium chloride 40 mEq/15 mL oral liquid 7.5 ml PEG DAILY@1800 ml 06/09/18 [Last Taken Unknown] sodium chloride 0.9 % for nebulization 3 ml IH Q4H PRN 06/09/18 [Last Taken Unknown] sodium chloride-aloe vera nasal gel 1 applic TP 4-6XD PRN #14.1 g 09/02/18 [Last Taken Unknown] acetylcysteine 200 mg/mL (20 %) solution 3 ml IH BID 1 Days #6 ml 10/04/18 [Last Taken Unknown] aspirin 81 mg chewable tablet 81 mg PEG DAILY #28 tab 11/03/18 [Last Taken Unknown] atropine 1 % eye drops 1 drp SL QID PRN 25 Days #5 ml 11/03/18 [Last Taken Unknown] guaifenesin 100 mg/5 mL oral liquid 10 ml PEG Q4H 11/03/18 [Last Taken Unknown] ipratropium-albuterol 0.5 mg-3 mg(2.5 mg base)/3 mL nebulization soln 3 ml IH Q4H PRN #90 ml 11/03/18 [Last Taken Unknown] metoclopramide 5 mg/5 mL oral solution 5 ml PEG Q6H ml 11/03/18 [Last Taken Unknown] nystatin 100,000 unit/gram topical powder 1 applic TP PRN PRN #30 g 11/03/18 [Last Taken Unknown] sucralfate 1 gram tablet 1 g PEG QID #112 tab 11/03/18 [Last Taken Unknown] Carbamide Peroxide [Debrox] 10 drp EACH EAR Q30D 12/22/18 [Last Taken Unknown] Diphenhydramine HCl [Allergy] 10 - 20 ml PEG Q4H PRN 12/22/18 [Last Taken Unknown] Docusate Sodium [Colace Liquid] 20 ml PEG QID 12/22/18 [Last Taken Unknown] Magnesium Hydroxide [Milk Of Magnesia] 30 ml PEG DAILY PRN 12/22/18 [Last Taken Unknown] Montelukast Sodium [Singulair] 10 mg PEG DAILY 12/22/18 [Last Taken Unknown] Omeprazole [Prilosec] 2.5 ml PEG DAILY 12/22/18 [Last Taken Unknown] Potassium Chloride [Potassium Chloride 40 meq/15ml Liquid] 15 ml PEG DAILY@0600 12/22/18 [Last Taken Unknown] Exam - Exam Vital Signs: Vital Signs - Last Taken Temp 36.4 C 12/22/18 08:38 Pulse 72 12/22/18 08:38 Resp 24 H 12/22/18 08:38 BP 87/51 L 12/22/18 08:38 Pulse Ox 97 12/22/18 08:38 Constitutional: Present: Alert, Oriented x3, Cooperative, Well developed, Well nourished, Mild distress, Thin and frail ENT Exam: Present: normal ENT inspection, hearing grossly normal, pharynx normal, TMs normal Eye Exam: bilateral eye: normal inspection, PERRL, EOMI Neck: Present: non-tender, full range of motion, supple, normal inspection, trachea midline Back Exam: Present: normal inspection, no CVA tenderness, no vertebral tenderness Breasts: Present: Exam deferred Respiratory: Present: chest non-tender, respiratory distress, rhonchi, stridor, No rales, No wheezing Cardiovascular/Chest: Present: normal peripheral pulses, regular rate, rhythm, no chest tenderness, no edema, no gallop, no JVD, no murmur, no rub, other - Pulses weak. Peripheral Pulses: radial (R): 1+, radial (L): 1+ Abdomen: Present: Normal bowel sounds, soft, nontender, nondistended, no rebound tenderness, no hepatospenomegaly, no masses /Rectal: Present: Exam deferred Extremity: Present: normal range of motion, non-tender, normal inspection, no pedal edema, no calf tenderness, normal capillary refill Skin Exam: Present: normal color, warm/dry, no cyanosis Lymphatic: Present: no adenopathy Neurologic: Present: water quality tester II-XII nml as tested, normal cerebellar test, no motor/sensory deficits, alert, normal mood/affect Appearance: Present: appropriate appearance, appropriate insight, neat, no memory impairment Eye contact: Present: cooperative, good eye contact Thoughts: Present: normal thought pattern, no apparent hallucination Diagnostic Studies: Abnormal Lab Results 12/22/18 12/22/18 12/22/18 Range/Units 02:53 02:53 02:53 WBC 19.2 H (4.0-10.5) K/mm3 RBC (4.7-6.0) M/mm3 Hgb 12.9 L (13.5-18.0) gm/dL Hct 39.7 L (42.0-52.0) % MCH 26.6 L (27-31) pg MCHC (32-36) g/dl RDW 14.5 H (11.5-14.0) % MPV (8-11.3) fl Immature Gran # (Auto) 0.08 H (0.000-0.0310) K/mm3 Neutrophils % 88.7 H (42-75.0) % Lymphocytes % 3.6 L (20-51) % Neutrophils # 17.0 H (1.3-6.0) K/mm3 Lymphocytes # 0.69 L (1.5-3.5) k/mm3 Monocytes # 1.3 H (0.0-1.0) k/mm3 Chloride (97-106) mmol/L Anion Gap 14.7 H (6.8-13.8) mmol/L BUN 26 H (6-23) mg/dL Lactic Acid, Venous 2.5 H* (0.4-2.0) mmol/L Calcium (7.9-10.9) mg/dL ALT 17 L (19-67) U/L Albumin 3.1 L (3.4-5.0) gm/dl Urine pH (5.0-7.0) pH Urine Blood (NEGATIVE) /ul Urine RBC (0-5) /hpf 12/22/18 12/22/18 12/22/18 Range/Units 03:40 08:45 08:45 WBC 14.9 H D (4.0-10.5) K/mm3 RBC 4.12 L (4.7-6.0) M/mm3 Hgb 11.0 L (13.5-18.0) gm/dL Hct 34.7 L (42.0-52.0) % MCH 26.7 L (27-31) pg MCHC 31.7 L (32-36) g/dl RDW 14.6 H (11.5-14.0) % MPV 11.5 H (8-11.3) fl Immature Gran # (Auto) 0.04 H (0.000-0.0310) K/mm3 Neutrophils % 82.3 H (42-75.0) % Lymphocytes % 9.8 L (20-51) % Neutrophils # 12.3 H (1.3-6.0) K/mm3 Lymphocytes # 1.45 L (1.5-3.5) k/mm3 Monocytes # (0.0-1.0) k/mm3 Chloride 109 H (97-106) mmol/L Anion Gap (6.8-13.8) mmol/L BUN (6-23) mg/dL Lactic Acid, Venous (0.4-2.0) mmol/L Calcium 7.6 L (7.9-10.9) mg/dL ALT (19-67) U/L Albumin (3.4-5.0) gm/dl Urine pH 8.0 H (5.0-7.0) pH Urine Blood 25 H (NEGATIVE) /ul Urine RBC 5-10 H (0-5) /hpf Laboratory Results WBC 14.9 K/mm3 (4.0-10.5) H D 12/22/18 08:45 RBC 4.12 M/mm3 (4.7-6.0) L 12/22/18 08:45 Hgb 11.0 gm/dL (13.5-18.0) L 12/22/18 08:45 Hct 34.7 % (42.0-52.0) L 12/22/18 08:45 MCV 84.2 fl (78-100) 12/22/18 08:45 MCH 26.7 pg (27-31) L 12/22/18 08:45 MCHC 31.7 g/dl (32-36) L 12/22/18 08:45 RDW 14.6 % (11.5-14.0) H 12/22/18 08:45 Plt Count 241 K/mm3 (150-450) 12/22/18 08:45 MPV 11.5 fl (8-11.3) H 12/22/18 08:45 Immature Gran % (Auto) 0.30 % (0.001-0.429) 12/22/18 08:45 Immature Gran # (Auto) 0.04 K/mm3 (0.000-0.0310) H 12/22/18 08:45 82.3 % (42-75.0) H 12/22/18 08:45 9.8 % (20-51) L 12/22/18 08:45 7.0 % (0.0-9) 12/22/18 08:45 0.3 % (0.0-3.0) 12/22/18 08:45 0.3 % (0.0-1.0) 12/22/18 08:45 Nucleated RBC % 0.0 k/mm3 (0-1) 12/22/18 08:45 12.3 K/mm3 (1.3-6.0) H 12/22/18 08:45 1.45 k/mm3 (1.5-3.5) L 12/22/18 08:45 1.0 k/mm3 (0.0-1.0) 12/22/18 08:45 0.0 k/mm3 (0.0-0.7) 12/22/18 08:45 Absolute Basophils 0.0 k/mm3 (0.0-0.1) 12/22/18 08:45 Sodium 142 mmol/L (132-142) 12/22/18 08:45 142 mmol/L (130-142) 12/22/18 08:45 Potassium 3.8 mmol/L (3.4-4.6) 12/22/18 08:45 Chloride 109 mmol/L (97-106) H 12/22/18 08:45 Carbon Dioxide 25.1 mmol/L (24-32.6) 12/22/18 08:45 11.7 mmol/L (6.8-13.8) 12/22/18 08:45 BUN 20 mg/dL (6-23) 12/22/18 08:45 0.93 mg/dL (0.4-1.4) 12/22/18 08:45 Est GFR (Non-Af Amer) 87 mL/min (60-130) D 12/22/18 08:45 21.5 (9.0-21.6) 12/22/18 08:45 91 mg/dL (70-110) 12/22/18 08:45 1.3 mmol/L (0.4-2.0) 12/22/18 08:45 Calcium 7.6 mg/dL (7.9-10.9) L 12/22/18 08:45 Calcium Adj for Albumin 9.3 mg/dL (8.4-10.2) 12/22/18 02:53 1.0 mg/dL (0.0-1.1) 12/22/18 02:53 AST 17 U/L (0-48) 12/22/18 02:53 ALT 17 U/L (19-67) L 12/22/18 02:53 142 U/L (50-170) 12/22/18 02:53 Less than 0.017 ng/mL (0.00-0.10) 12/22/18 02:53 B-Natriuretic Peptide 172 pg/mL (5-175) 12/22/18 02:53 7.1 gm/dL (6.2-8.2) 12/22/18 02:53 3.1 gm/dl (3.4-5.0) L 12/22/18 02:53 Yellow 12/22/18 03:40 Clear (CLEAR) 12/22/18 03:40 8.0 pH (5.0-7.0) H 12/22/18 03:40 Ur Specific [place] 1.010 SP.GR. (1.005-1.030) 12/22/18 03:40 Negative mg/dL (NEGATIVE) 12/22/18 03:40 Negative mg/dL (NEGATIVE) 12/22/18 03:40 Negative mg/dL (NEGATIVE) 12/22/18 03:40 25 /ul (NEGATIVE) H 12/22/18 03:40 Negative (NEGATIVE) 12/22/18 03:40 Negative mg/dl (NEGATIVE) 12/22/18 03:40 Normal EU/dl (NORMAL) 12/22/18 03:40 Ur Leukocyte Esterase Negative /ul (NEGATIVE) 12/22/18 03:40 5-10 /hpf (0-5) H 12/22/18 03:40 Trace /hpf (0-5) 12/22/18 03:40 Ur Epithelial Cells None seen /hpf (0-5) 12/22/18 03:40 Amorphous Sediment Few - 1+ (NONE-FEW) 12/22/18 03:40 Trace (NONE) 12/22/18 03:40 Culture to follow 12/22/18 03:40 Assessment/Plan - Narrative Narrative: 1. Continue IV fluid bolus replacement until blood pressure response. 2. Consider pressor therapy if his pressure does not get to above 90 systolic 3. Repeat lab at 8:45 AM 4. Order an Acapella flutter device to help mobilize secretions. - Assessment/Plan (1) Pneumonia Problem: Acute (2) Sepsis Problem: Acute Qualifiers: Sepsis type: sepsis due to unspecified organism Qualified Code(s): A41.9 - Sepsis, unspecified organism (3) Chronic pulmonary aspiration Problem: Chronic Qualifiers: Encounter type: sequela Qualified Code(s): T17.908S - Unspecified foreign body in respiratory tract, part unspecified causing other injury, sequela (4) Factor V Leiden Problem: Chronic (5) Cerebral palsy, unspecified Problem: Chronic Qualifiers: Cerebral palsy type: spastic diplegic Qualified Code(s): G80.1 - Spastic diplegic cerebral palsy Sepsis Reassessment Note Time:: 07:45 Narrative: Last Vital Signs Temp 36.4 C 12/22/18 08:38 Pulse 68 12/22/18 10:00 Resp 20 12/22/18 10:00 BP 87/55 L 12/22/18 10:00 Pulse Ox 98 12/22/18 10:00 Vitals reviewed: Yes - Systolic BP-87, Mean ART Pressure 62,62, 63 Heart Sounds: S1 & S2, Regular Breath Sounds: Rhonchi, Sonorous, Stridor, Bronchial, Tracheal Peripheral Pulse: Radial Peripheral Pulse Strength: Weak Additional Peripheral Pulse: Pedal Additional Peripheral Pulse Strength: Weak Capillary Refill: < 3 seconds Skin Color/Condition: Warm, Dry, Pale
[2018-12-22] MEDS: CEFEPIME HCL 1 GM in DEXTROSE 5 % IN WATER 100 ML IV SCH ×2 (14:00)
[2018-12-22] MEDS ORDERED: ALBUTEROL SULFATE/IPRATROPIUM 3 ML NEBU IH PRN (14:20)
[2018-12-22] MEDS ORDERED: MAGNESIUM HYDROXIDE 30 ML UDC PEG PRN (14:20)
[2018-12-22] MEDS ORDERED: guaiFENesin 100 MG/5 ML BTL PEG PRN (14:20)
[2018-12-22] MEDS ORDERED: ACETAMINOPHEN 160 MG/5 ML LIQUID PEG PRN (14:20)
[2018-12-22] MEDS ORDERED: ATROPINE SULFATE 50 DROP BTL SL PRN (14:20)
[2018-12-22] MEDS: ALBUTEROL SULFATE 2.5 MG/0.5 ML VIAL.NEB IH SCH ×2 (15:44→19:46)
[2018-12-22] MEDS: ACETYLCYSTEINE 200 MG/ML VIAL IH SCH ×2 (15:45→19:45)
[2018-12-22] MEDS: ASPIRIN 81 MG TAB.CHEW PEG SCH (16:22)
[2018-12-22] MEDS: METOCLOPRAMIDE HCL 5 MG/5 ML BTL GT SCH ×2 (16:23→20:31)
[2018-12-22] MEDS: DOCUSATE SODIUM 150 MG/15 ML BTL PEG SCH ×2 (16:24→20:31)
[2018-12-22] MEDS: SIMETHICONE 40 MG/0.6 ML BTL PEG SCH ×2 (16:25→20:30)
[2018-12-22] MEDS: CALCIUM CARBONATE 500 MG TAB.CHEW PEG SCH ×2 (16:30→20:32)
[2018-12-22] MEDS: OMEPRAZOLE 2 MG/ML BTL PEG SCH (16:31)
[2018-12-22] MEDS ORDERED: CALCIUM CARBONATE PEG SCH (17:00)
[2018-12-23] MEDS: METOCLOPRAMIDE HCL 5 MG/5 ML BTL GT SCH ×2 (02:08→08:26)
[2018-12-23] MEDS: CEFEPIME HCL 1 GM in DEXTROSE 5 % IN WATER 100 ML IV SCH ×2 (02:08)
[2018-12-23 05:19] LABS: Hematocrit 36.1 % (42.0-52.0); Hemoglobin 11.2 gm/dL (13.5-18.0); Mean Cell Volume 84.1 fl (78-100); Mean Corpuscular Hemoglobin 26.1 pg (27-31); Mean Platelet Volume 10.9 fl (8-11.3); Neutrophil # 5.4 K/mm3 (1.3-6.0); Neutrophil % 74.1 % (42-75.0); Platelet Count 222 K/mm3 (150-450); Red Blood Count 4.29 M/mm3 (4.7-6.0); Red Cell Distribution Width 14.5 % (11.5-14.0); White Blood Count 7.3 K/mm3 (4.0-10.5)
[2018-12-23 05:27] LABS: Anion Gap 12.8 mmol/L (6.8-13.8); BUN/Creatinine Ratio 19.3 (9.0-21.6); Calcium * 7.9 mg/dL (7.9-10.9); Carbon Dioxide 23.9 mmol/L (24-32.6); Estimated Creat Clear 88.1; Potassium 3.7 mmol/L (3.4-4.6)
[2018-12-23] MEDS: ACETYLCYSTEINE 200 MG/ML VIAL IH SCH (06:08)
[2018-12-23] MEDS: ALBUTEROL SULFATE 2.5 MG/0.5 ML VIAL.NEB IH SCH ×2 (06:08→10:23)
[2018-12-23] MEDS: CALCIUM CARBONATE 500 MG TAB.CHEW PEG SCH (08:26)
[2018-12-23] MEDS: ASPIRIN 81 MG TAB.CHEW PEG SCH (08:26)
[2018-12-23] MEDS: DOCUSATE SODIUM 150 MG/15 ML BTL PEG SCH (08:26)
[2018-12-23] MEDS: SIMETHICONE 40 MG/0.6 ML BTL PEG SCH (08:27)
[2018-12-23] MEDS: OMEPRAZOLE 2 MG/ML BTL PEG SCH (08:48)
[2018-12-23] MEDS ORDERED: MONTELUKAST SODIUM 10 MG TABLET PEG SCH (09:00)
[2018-12-23] MEDS ORDERED: ZIPRASIDONE HCL 20 MG CAPSULE PEG SCH (09:00)
--- NOTE | 2018-12-23 10:13 | DS ---
(1) Pneumonia Problem: Acute (2) Sepsis Problem: Resolved Qualifiers: Sepsis type: sepsis due to unspecified organism Qualified Code(s): A41.9 - Sepsis, unspecified organism (3) Chronic pulmonary aspiration Problem: Chronic Qualifiers: Encounter type: sequela Qualified Code(s): T17.908S - Unspecified foreign body in respiratory tract, part unspecified causing other injury, sequela (4) Factor V Leiden Problem: Chronic (5) Cerebral palsy, unspecified Problem: Chronic Qualifiers: Cerebral palsy type: spastic diplegic Qualified Code(s): G80.1 - Spastic diplegic cerebral palsy Description of Stay: Samuel Pham is a 63-year-old male who had developed fever, chills, shortness of breath, tachypnea, and gurgling respirations. He is a gentleman who has a lifelong cerebral palsy and has had several aspiration events in the past causing pneumonias. He resides at the [facility]. He was seen initially in the emergency room. He was found to be septic with elevated white count with bandemia, elevated lactic acid of 2.5, and hypotension. He was started on IV fluids and received a little over 4 L before his blood pressure normalized. He did not require pressors. He was started on IV cefepime and gentamicin. We discontinued the gentamicin yesterday morning. We started him on incentive spirometry and a flutter Acapella device which has really cleared his lungs. Initial chest x-ray did not show any pneumonia but after rehydration there is a hint of pneumonia in the left lower lobe per Dr. Boyd. He has made a dramatic improvement and is better much sooner than we anticipated. He has not had any more fever since admission, his white count has dropped from 19,000 to 7000 with no bandemia now. His lactic acid normalized after the first 1 was elevated at 2.5. Second 1 was 1.0. He is alert and conversant. His lungs are clear now and I do not hear any wheezing, rales, or rhonchi anywhere in the chest including the left lower lobe. Therefore I think he can be returned to the retirement today to be continued on ceftriaxone 500 mg twice daily through his PEG tube. We will also have him continue incentive spirometry and using his flutter device. He should also continue respiratory therapy treatments for about another week. His disposition is markedly improved. His prognosis is fair. Procedures Performed: none Results and Findings: Pending Mircobiology Results 12/22/18 03:40 Urine,Catheterized Urine Culture - Preliminary No Growth 12/22/18 03:20 Blood Blood Culture - Preliminary NO GROWTH 24 HOURS 12/22/18 02:53 Blood Blood Culture - Preliminary NO GROWTH 24 HOURS Lab Pending Results 12/22/18 02:53: WBC 19.2 H, RBC 4.85, Hgb 12.9 L, Hct 39.7 L, MCV 81.9, MCH 26.6 L, MCHC 32.5, RDW 14.5 H, Plt Count 308, MPV 10.9, Immature Gran % (Auto) 0.40, Immature Gran # (Auto) 0.08 H, Neutrophils % 88.7 H, Lymphocytes % 3.6 L, Monocytes % 6.8, Eosinophils % 0.2, Basophils % 0.3, Nucleated RBC % 0.0, Neutrophils # 17.0 H, Lymphocytes # 0.69 L, Monocytes # 1.3 H, Eosinophils # 0.0, Absolute Basophils 0.1 12/22/18 02:53: Sodium 138, Plasma Sodium 138, Potassium 3.8, Chloride 101, Carbon Dioxide 26.1, Anion Gap 14.7 H, BUN 26 H, Creatinine 1.21, Est GFR (Non- Af Amer) 64, BUN/Creatinine Ratio 21.5, Random Glucose 107, Calcium 8.9, Calcium Adj for Albumin 9.3, Total Bilirubin 1.0, AST 17, ALT 17 L, Alkaline Phosphatase 142, Troponin I Less than 0.017, B-Natriuretic Peptide 172, Total Protein 7.1, Albumin 3.1 L 12/22/18 02:53: Lactic Acid, Venous 2.5 H* 12/22/18 03:40: Urine Color Yellow, Urine Appearance Clear, Urine pH 8.0 H, Ur Specific [place] 1.010, Urine Protein Negative, Urine Glucose (UA) Negative, Urine Ketones Negative, Urine Blood 25 H, Urine Nitrate Negative, Urine Bilirubin Negative, Urine Urobilinogen Normal, Ur Leukocyte Esterase Negative, Urine RBC 5-10 H, Urine WBC Trace, Ur Epithelial Cells None seen, Amorphous Se diment Few - 1+, Urine Bacteria Trace, Urine Culture Comments Culture to follow 12/22/18 05:45: Lactic Acid, Venous 1.4 12/22/18 08:45: WBC 14.9 H D, RBC 4.12 L, Hgb 11.0 L, Hct 34.7 L, MCV 84.2, MCH 26.7 L, MCHC 31.7 L, RDW 14.6 H, Plt Count 241, MPV 11.5 H, Immature Gran % (Auto) 0.30, Immature Gran # (Auto) 0.04 H, Neutrophils % 82.3 H, Lymphocytes % 9.8 L, Monocytes % 7.0, Eosinophils % 0.3, Basophils % 0.3, Nucleated RBC % 0.0, Neutrophils # 12.3 H, Lymphocytes # 1.45 L, Monocytes # 1.0, Eosinophils # 0.0, Absolute Basophils 0.0 12/22/18 08:45: Sodium 142, Plasma Sodium 142, Potassium 3.8, Chloride 109 H, Carbon Dioxide 25.1, Anion Gap 11.7, BUN 20, Creatinine 0.93, Est GFR (Non-Af Amer) 87 D, BUN/Creatinine Ratio 21.5, Random Glucose 91, Calcium 7.6 L 12/22/18 08:45: Lactic Acid, Venous 1.3 12/23/18 05:15: WBC 7.3 D, RBC 4.29 L, Hgb 11.2 L, Hct 36.1 L, MCV 84.1, MCH 26.1 L, MCHC 31.0 L, RDW 14.5 H, Plt Count 222, MPV 10.9, Immature Gran % (Auto) 0.40, Immature Gran # (Auto) 0.03, Neutrophils % 74.1, Lymphocytes % 11.2 L, Monocytes % 10.5 H, Eosinophils % 3.0, Basophils % 0.8, Nucleated RBC % 0.0, Neutrophils # 5.4, Lymphocytes # 0.81 L, Monocytes # 0.8, Eosinophils # 0.2, Absolute Basophils 0.1 12/23/18 05:15: Sodium 142, Plasma Sodium 142, Potassium 3.7, Chloride 109 H, Carbon Dioxide 23.9 L, Anion Gap 12.8, BUN 16, Creatinine 0.83, Est GFR (Non-Af Amer) 99, BUN/Creatinine Ratio 19.3, Random Glucose 88, Calcium 7.9 Discharge Location: [facility] Disposition: Intermediate Care Facility ICF Condition: Stable Face to Face Encounter completed per [facility] Guidelines: No Level of Care: ICF Discharge Activity: Activity as tolerated Discharge Diet: Tube Feedings, Other - Continue PEG tube feedings as per usual Referrals: April Cantrell ARNP [Primary Care Provider] - Additional Patient Instructions (free text): Continue incentive spirometry every 2 hours while awake Continue Acapella flutter device every 2 hours while awake for the next 2 weeks. Notify April Pak that he has been returned to the medicine. Prescriptions (Any new or edited meds): Cefdinir [Omnicef Suspension] 6 ml PO DAILY #60 ml Complete Home Medications List: Complete Home Medication List: Saliva Stimulant Agents Comb.3 [Biotene Moisturizing Mouth] 1 spray MM DAILY PRN 11/26/16 Simethicone [Infants' Gas Relief] 4.8 ml PEG QID 11/26/16 cetirizine 10 mg tablet 10 mg PEG QPM 03/18/18 cholecalciferol (vitamin D3) 5,000 unit capsule 5,000 unit PEG DAILY 03/18/18 docusate sodium 50 mg/5 mL oral liquid 10 ml PEG BID PRN ml 03/18/18 furosemide 40 mg tablet 40 mg PEG DAILY 03/18/18 ziprasidone 20 mg capsule 20 mg PEG DAILY cap 05/12/18 acetaminophen 325 mg capsule 650 mg PEG Q4H PRN cap 06/09/18 albuterol sulfate 2.5 mg/3 mL (0.083 %) solution for nebulization 2.5 mg IH QID 8 Days #96 ml 06/09/18 guaifenesin 100 mg/5 mL oral liquid 20 ml PEG Q4H PRN ml 06/09/18 potassium chloride 40 mEq/15 mL oral liquid 7.5 ml PEG DAILY@1800 ml 06/09/18 sodium chloride 0.9 % for nebulization 3 ml IH Q4H PRN 06/09/18 sodium chloride-aloe vera nasal gel 1 applic TP 4-6XD PRN #14.1 g 09/02/18 acetylcysteine 200 mg/mL (20 %) solution 3 ml IH BID 1 Days #6 ml 10/04/18 aspirin 81 mg chewable tablet 81 mg PEG DAILY #28 tab 11/03/18 atropine 1 % eye drops 1 drp SL QID PRN 25 Days #5 ml 11/03/18 guaifenesin 100 mg/5 mL oral liquid 10 ml PEG Q4H 11/03/18 ipratropium-albuterol 0.5 mg-3 mg(2.5 mg base)/3 mL nebulization soln 3 ml IH Q4H PRN #90 ml 11/03/18 metoclopramide 5 mg/5 mL oral solution 5 ml PEG Q6H ml 11/03/18 nystatin 100,000 unit/gram topical powder 1 applic TP PRN PRN #30 g 11/03/18 sucralfate 1 gram tablet 1 g PEG QID #112 tab 11/03/18 Calcium Carbonate 1,250 mg PEG QID 12/22/18 Carbamide Peroxide [Debrox] 10 drp EACH EAR Q30D 12/22/18 Diphenhydramine HCl [Allergy] 10 - 20 ml PEG Q4H PRN 12/22/18 Docusate Sodium [Colace Liquid] 20 ml PEG QID 12/22/18 Magnesium Hydroxide [Milk Of Magnesia] 30 ml PEG DAILY PRN 12/22/18 Montelukast Sodium [Singulair] 10 mg PEG DAILY 12/22/18 Omeprazole [Prilosec] 2.5 ml PEG DAILY 12/22/18 Potassium Chloride [Potassium Chloride 40 meq/15ml Liquid] 15 ml PEG DAILY@0600 12/22/18 Calcium Carbonate [Tums] 1,000 mg PEG QID tab.chew 12/23/18 Cefdinir [Omnicef Suspension] 6 ml PO DAILY #60 ml 12/23/18
[2018-12-23] MEDS ORDERED: HEPARIN SOD.,PORCINE 100 UNITS/ML IV ONE (11:10)
[2018-12-23 16:18] VITALS: BP 102/55
[2018-12-23] MEDS ORDERED: ACETYLCYSTEINE 200 MG/ML VIAL IH SCH (19:00)
== END 2018-12-23 13:00 | DRG 871 ==
LOC: ER 02:35 → MS 03:35
PROVIDERS: ADMIT Family Medicine; ATTEND Family Medicine
DX: A41.9 Sepsis, unspecified organism; R53.1 Weakness; J18.1 Lobar pneumonia, unspecified organism; D68.51 Activated protein C resistance; G80.1 Spastic diplegic cerebral palsy; T17.900S Unspecified foreign body in respiratory tract, part unspecified causing asphyxiation, sequela; I95.9 Hypotension, unspecified; Z22.322 Carrier or suspected carrier of Methicillin resistant Staphylococcus aureus
CPT/HCPCS: 36415; 71010; 71045; 80048; 80053; 81001; 83519; 83605; 83880; 84484; 85025; 87040; 87081; 87086; 93005; 94640; 94664; 94760; 96360; 99283

== ENCOUNTER 2019-12-06 09:48 | Inpatient (IN) ==
[2019-12-06] MEDS ORDERED: ACETAMINOPHEN 1,000 MG/100 ML BTL IV ONE (10:22)
[2019-12-06] MEDS ORDERED: NORMAL SALINE 1,000 ML IV ONE (10:31)
[2019-12-06 10:33] LABS: Hematocrit 40.3 % (42.0-52.0); Mean Cell Volume 81.3 fl (78-100); Mean Corpuscular Hemoglobin 26.2 pg (27-31); Mean Corpuscular Hgb Conc 32.3 g/dl (32-36); Mean Platelet Volume 11.1 fl (8-11.3); Neutrophil # 16.6 K/mm3 (1.3-6.0); Neutrophil % 89.9 % (42-75.0); Platelet Count 316 K/mm3 (150-450); Red Blood Count 4.96 M/mm3 (4.7-6.0); Red Cell Distribution Width 15.2 % (11.5-14.0); White Blood Count 18.5 K/mm3 (4.0-10.5)
[2019-12-06 11:01] LABS: Troponin I Less than 0.017 ng/mL (0.00-0.10)
[2019-12-06 11:05] LABS: ALT 18 U/L (19-67); AST 23 U/L (0-48); Albumin * 3.2 gm/dl (3.4-5.0); Alkaline Phosphatase * 151 U/L (50-170); Anion Gap 14.6 mmol/L (6.8-13.8); BNP * 192 pg/mL (5-175); BUN/Creatinine Ratio 31.3 (9.0-21.6); Bilirubin, Total 0.7 mg/dL (0.0-1.1); Blood Urea Nitrogen 35 mg/dL (6-23); Ca. Corrected For Albumin 9.2 mg/dL (8.4-10.2); Calcium * 8.9 mg/dL (7.9-10.9); Carbon Dioxide 27.2 mmol/L (24-32.6); Chloride 103 mmol/L (97-106); Glucose * 109 mg/dL (70-110); Potassium 3.8 mmol/L (3.4-4.6); Sodium 141 mmol/L (132-142); Total Protein 7.4 gm/dL (6.2-8.2)
--- NOTE | 2019-12-06 12:12 | ERNOTE ---
Medical Problem HPI - Narrative Date of Service: 12/06/19 - General Chief Complaint: Fever Time Seen by Provider: 12/06/19 10:01 Source: patient Exam Limitations: no limitations - Immun/Allergies/Home Medications Immunizations: IMMUNIZATION HX Immunizations Up to Date Yes History of Influenza Vaccine Yes Hx Pneumococcal Vaccination Yes Allergies/Adverse Reactions: Allergies levofloxacin [From Levaquin] Allergy (Mild, Verified 12/06/19 09:54) amoxicillin trihydrate [From Augmentin] Allergy (Verified 12/06/19 09:54) misoprostol [From Cytotec] Allergy (Verified 12/06/19 09:54) potassium clavulanate [From Augmentin] Allergy (Verified 12/06/19 09:54) risperidone [From Risperdal] Allergy (Verified 12/06/19 09:54) Home Medications: HOME MEDICATIONS Saliva Stimulant Agents Comb.3 [Biotene Moisturizing Mouth] 1 spray MM DAILY PRN 11/26/16 [Last Taken Unknown] Simethicone [Infants' Gas Relief] 4.8 ml PEG QID 11/26/16 [Last Taken Unknown] cetirizine 10 mg tablet 10 mg PEG QPM 03/18/18 [Last Taken Unknown] cholecalciferol (vitamin D3) 125 mcg (5,000 unit) capsule 5,000 unit PEG DAILY 03/18/18 [Last Taken Unknown] furosemide 40 mg tablet 40 mg PEG DAILY 03/18/18 [Last Taken Unknown] acetaminophen 325 mg capsule 650 mg PEG Q4H PRN cap 06/09/18 [Last Taken Unknown] albuterol sulfate 2.5 mg IH QID 8 Days #96 ml 06/09/18 [Last Taken Unknown] sodium chloride-aloe vera 1 applic TP 4-6XD PRN #14.1 g 09/02/18 [Last Taken Unknown] acetylcysteine 200 mg/mL (20 %) solution 3 ml IH BID 1 Days #6 ml 10/04/18 [Last Taken Unknown] aspirin 81 mg chewable tablet 81 mg PEG DAILY #28 tab 11/03/18 [Last Taken Unknown] atropine 1 % eye drops 1 drp SL QID PRN 25 Days #5 ml 11/03/18 [Last Taken Unknown] ipratropium 0.5 mg-albuterol 3 mg (2.5 mg base)/3 mL nebulization soln 3 ml IH Q4H PRN #90 ml 11/03/18 [Last Taken Unknown] metoclopramide HCl 5 mg/5 mL oral solution 5 ml PEG Q6H ml 11/03/18 [Last Taken Unknown] sucralfate 1 gram tablet 1 g PEG QID #112 tab 11/03/18 [Last Taken Unknown] Carbamide Peroxide [Debrox] 10 drp EACH EAR Q30D 12/22/18 [Last Taken Unknown] Magnesium Hydroxide [Milk Of Magnesia] 30 ml PEG DAILY PRN 12/22/18 [Last Taken Unknown] Montelukast Sodium [Singulair] 10 mg PEG DAILY 12/22/18 [Last Taken Unknown] Omeprazole [Prilosec] 2.5 ml PEG DAILY 12/22/18 [Last Taken Unknown] Potassium Chloride [Potassium Chloride 40 meq/15ml Liquid] 15 ml PEG DAILY@0600 12/22/18 [Last Taken Unknown] calcium carbonate 1,177 mg chewable tablet 1,177 mg PO QID 02/09/19 [Last Taken Unknown] ziprasidone HCl 20 mg capsule 20 mg FEEDING TUBE DAILY #30 cap 06/07/19 [Last Taken Unknown] guaifenesin 100 mg/5 mL oral liquid 200 mg FEEDING TUBE Q6H 07/04/19 [Last Taken Unknown] docusate sodium 50 mg/5 mL oral liquid 20 ml FEEDING TUBE DAILY 08/02/19 [Last Taken Unknown] - History of Present History Narrative: 64-year-old male presents status post a fall at the snf, weakness, chronic cough, shortness of breath. Has medical history significant for CHF, aspiration pneumonia, schizophrenia, anemia, seizures, multiple falls, sepsis, factor V Leiden. Patient today notes he is had a chronic cough with clear phleg m, no significant worsening recently. Note he did previously finished a course of antibiotics for aspiration pneumonia. Patient also notes significant weakness in his lower extremities. Note chronically he has been using a wheelchair and does not significantly ambulate. Today at the snf was reported that he tried ambulate without his wheelchair and fell in the bathroom. Patient notes he did not hit his head he did not lose consciousness. He was brought to the ER by EMS. Patient notes nothing seems to improve or worsen his symptoms currently. Patient does note that his difficulty breathing/shortness of breath has mildly increased in the last day or 2. Note due to patient's mental capacity he is difficult to obtain a full history. He does not note any other acute concerns currently. She does note Review of Systems - Review of Systems Constitutional: Present: weakness - Knees bilaterally EYE: Absent: blurred vision, double vision ENT: Absent: nose congestion, sore throat Respiratory: Present: shortness of breath - See HPI, cough - Chronic Cardiology: Absent: chest pain Gastrointestinal/Abdominal: Present: constipation. 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 Cerebral palsy (Chronic) Eczema (Chronic) Insomnia (Chronic) Gastrostomy tube dependent (Chronic) Bronchitis Rash due to allergy blood transfusion subclavian port Surgical History: Surgical History (Last Reviewed 12/06/19 @ 12:17 by LILY Fitzgerald) H/O esophagogastroduodenoscopy with biopsy. Placement of 24 fr PEG tube Hernia Repair History of colonoscopy 07/10/05, 03/10/2016. History of gastrostomy tube placement Onset Date: ~12/06/15 S/P percutaneous endoscopic gastrostomy (PEG) tube placement Onset Date: ~11/10/10 Family History: Family History (Last Reviewed 12/06/19 @ 12:17 by LILY Fitzgerald) Brother Alive and well Father Lung cancer Mother Arthritis Sister Guillain Pop syndrome Social History: (Last Reviewed 12/06/19 @ 12:17 by LILY Fitzgerald) Social History: snf: Yes Service: No Tobacco: Smoking Status: Former smoker Alcohol: alcohol intake: never Substance Use: substance use type: does not use Dietary Habits: caffeine: No Physical Exam - Physical Exam General Appearance: Present: mild distress Head Exam: Present: normal inspection, no evidence of injury Eye Exam: Normal inspection: bilateral, PERRL: bilateral Ears, Nose, Throat: Present: normal ENT inspection Neck: Present: normal inspection, nontender Respiratory: Present: no respiratory distress, normal breath sounds - Wheezing cleared with cough, chest nontender Cardiovascular/Chest: Present: regular rate, rhythm Peripheral Pulses: N=norm/S=strong/W=weak/B=bound/A=absent: Radial (R): Normal, Radial (L): Normal Gastrointestinal/Abdominal: Present: normal bowel sounds, nontender, soft, distended - Mild, PEG tube in place, mild erythema around insertion site Extremity Exam: Present: other - Spontaneously moves all limbs full and functionally Skin Exam: Present: normal color, warm/dry Progress - Results and Orders Patient's Lab Results:: I have reviewed the patient's lab results. Results and Orders: Laboratory Tests 12/06/19 12/06/19 12/06/19 10:00 10:00 10:00 WBC 18.5 H RBC 4.96 Hgb 13.0 L Neutrophils % 89.9 H D-Dimer 0.44 D Troponin I Less than 0.017 - Vital Signs Patient's Vital Signs:: I have reviewed the patient's vital signs. Vital Signs: Vital Signs 12/06/19 09:51 12/06/19 10:30 12/06/19 11:38 Temperature 38.9 C H Pulse Rate 98 97 87 Respiratory Rate 32 H 27 H 24 H Blood Pressure 103/57 91/68 87/54 L O2 Sat by Pulse Oximetry 93 94 92 L - X-Ray X-Ray #1 X-Ray: chest Interpretation: Reviewed by me X-ray Comments: History: Upper respiratory infection. Shortness of breath. Technique: Single AP view of the chest obtained. Comparison: 12/22/2018 Findings: There is a right mid to lower lung field infiltrate. Heart size and vascularity appear within normal limits. Left central venous catheter is unchanged. There are no other focal areas of lung consolidation. IMPRESSION: RIGHT MID TO LOWER LUNG FIELD INFILTRATE. Electronically signed by Delta Ellis M.D.. - Progress/Reassessment Chief Complaint: Fever Progress:: Unchanged Plan - Plan Plan: -64-year-old male brought in today status post fall for weakness, upper respiratory symptoms. -X-ray revealed concern for a right mid lower lobe pneumonia, significant white count of 18.5 with a left shift, cardiac labs negative as well as d-dimer negative -Patient has significant history of aspiration pneumonia. Due to patient's current clinical presentation as well as lab and radiologic findings concern for pneumonia and for admission acutely. Discussed the case with Dr. Kramer he agreed to accept the patient for admission for further care. Patient will be given dose antibiotics in the ER today with continued care per medicine team. Departure Clinical Impression: Pneumonia Qualifiers: Pneumonia type: aspiration pneumonia Aspiration pneumonia type: unspecified Laterality: right Lung location: unspecified part of lung Qualified Code(s): J69.0 - Pneumonitis due to inhalation of food and vomit - Departure Disposition: Short Term Hospital Inpatient Condition: Good
[2019-12-06] MEDS: AZITHROMYCIN 500 MG in DEXTROSE 5 % IN WATER 250 ML IV SCH ×2 (13:35)
[2019-12-06] MEDS ORDERED: SODIUM CHLORIDE TP PRN (16:26)
[2019-12-06] MEDS ORDERED: ATROPINE SULFATE 50 DROP BTL SL PRN (16:26)
[2019-12-06] MEDS ORDERED: MAGNESIUM HYDROXIDE 30 ML UDC PEG PRN (16:26)
[2019-12-06] MEDS ORDERED: [UNRECOGNIZED DRUG - OTHER] TP PRN (16:26)
[2019-12-06] MEDS ORDERED: ACETAMINOPHEN 160 MG/5 ML LIQUID PEG PRN (16:52)
[2019-12-06] MEDS ORDERED: Lytes/Yerba Santa 240 APPL BTL MM PRN (18:30)
[2019-12-06] MEDS: ALBUTEROL SULFATE 2.5 MG/0.5 ML VIAL.NEB IH SCH (20:17)
[2019-12-06] MEDS ORDERED: ACETYLCYSTEINE 200 MG/ML VIAL IH SCH (21:00)
[2019-12-06] MEDS: METOCLOPRAMIDE HCL GT SCH ×2 (21:09→21:30)
[2019-12-06] MEDS: CALCIUM CARBONATE 500 MG TAB.CHEW PO SCH ×2 (21:11→21:30)
[2019-12-06] MEDS: SUCRALFATE 1 G/10 ML UDC PEG SCH ×2 (21:11→21:30)
[2019-12-06] MEDS: LORATADINE 5 MG/5 ML SYRUP PEG SCH (21:12)
[2019-12-06] MEDS: SIMETHICONE 40 MG/0.6 ML BTL PEG SCH ×2 (21:13→21:30)
--- NOTE | 2019-12-06 23:06 | HP ---
Chief Complaint - Chief Complaint Date of Service: 12/06/19 Time of Service: 16:00 Chief Complaint: Cough, shortness of breath History of Present Illness: Samuel is a 64 yo resident of [facility]. He has Cerebral Palsy and history of chronic CVA. He has PEG tube for feeding but admits to drinking water although he has been instructed this puts him at higher risk for aspiration. He denies choking on swallowed liquids. He reports waking this morning and noticing a gurgling in his chest. This is how he usually notices the start of pneumonia. Review of records indicate it has been about a year since his last episode. He reports yesterday feeling his usual and he has not changed any medications or activity. He is currently a resident at [facility]. There are no reported cases of COVID-19 at [facility] at this time. In the ER he has dropped as low as 86% on room air and was placed on 2lpm via NC. He had a chest xray that shows right mid to lower lobe pneumonia. He was started on rocephin and azithromycin. 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 Cerebral palsy (Chronic) Eczema (Chronic) Insomnia (Chronic) Gastrostomy tube dependent (Chronic) Bronchitis Rash due to allergy blood transfusion subclavian port Surgical History: Surgical History (Last Reviewed 12/06/19 @ 12:17 by LILY Fitzgerald) H/O esophagogastroduodenoscopy with biopsy. Placement of 24 fr PEG tube Hernia Repair History of colonoscopy 07/10/05, 03/10/2016. History of gastrostomy tube placement Onset Date: ~12/06/15 S/P percutaneous endoscopic gastrostomy (PEG) tube placement Onset Date: ~11/10/10 Family History: Family History (Last Reviewed 12/06/19 @ 12:17 by LILY Fitzgerald) Brother Alive and well Father Lung cancer Mother Arthritis Sister Guillain Pop syndrome Social History: (Last Reviewed 12/06/19 @ 12:17 by LILY Fitzgerald) Social History: longterm: Yes Service: No Tobacco: Smoking Status: Former smoker Alcohol: alcohol intake: never Substance Use: substance use type: does not use Dietary Habits: caffeine: No Review Of Systems (GEN) - Review of Systems Generalized/Overall Review: Absent: Weakness, Chills, Fever, Diaphoresis, Fatigue EENTM: Absent: Eye Pain, Blurred Vision Respiratory: Present: Cough, Other - gurgling. Absent: Shortness of Breath Cardiac: Absent: Chest Pain, Edema Abdominal: Absent: Nausea, Vomiting Genitourinary: Present: No Symptoms Reported Neurological: Absent: Headache, Weakness Skin: Present: No Symptoms Reported Endocrine: Present: No Symptoms Reported Immunizations: IMMUNIZATION HX Immunizations Up to Date Yes History of Influenza Vaccine Yes Hx Pneumococcal Vaccination Yes Allergies/Adverse Reactions: Allergies Allergy/AdvReac Type Severity Reaction Status Date / Time levofloxacin [From Levaquin] Allergy Mild Verified 12/06/19 09:54 amoxicillin trihydrate Allergy Verified 12/06/19 09:54 [From Augmentin] misoprostol [From Cytotec] Allergy Verified 12/06/19 09:54 potassium clavulanate Allergy Verified 12/06/19 09:54 [From Augmentin] risperidone [From Risperdal] Allergy Verified 12/06/19 09:54 Home Medications: HOME MEDICATIONS Saliva Stimulant Agents Comb.3 [Biotene Moisturizing Mouth] 1 spray MM DAILY PRN 11/26/16 [Last Taken Unknown] Simethicone [Infants' Gas Relief] 4.8 ml PEG QID 11/26/16 [Last Taken Unknown] cetirizine 10 mg tablet 10 mg PEG QPM 03/18/18 [Last Taken Unknown] cholecalciferol (vitamin D3) 125 mcg (5,000 unit) capsule 5,000 unit PEG DAILY 03/18/18 [Last Taken Unknown] furosemide 40 mg tablet 40 mg PEG DAILY 03/18/18 [Last Taken Unknown] acetaminophen 325 mg capsule 650 mg PEG Q4H PRN cap 06/09/18 [Last Taken Unknown] albuterol sulfate 2.5 mg IH QID 8 Days #96 ml 06/09/18 [Last Taken Unknown] acetylcysteine 200 mg/mL (20 %) solution 3 ml IH BID 1 Days #6 ml 10/04/18 [Last Taken Unknown] aspirin 81 mg chewable tablet 81 mg PEG DAILY #28 tab 11/03/18 [Last Taken Unknown] atropine 1 % eye drops 1 drp SL QID PRN 25 Days #5 ml 11/03/18 [Last Taken Unknown] ipratropium 0.5 mg-albuterol 3 mg (2.5 mg base)/3 mL nebulization soln 3 ml IH Q4H PRN #90 ml 11/03/18 [Last Taken Unknown] metoclopramide HCl 5 mg/5 mL oral solution 5 ml PEG Q6H ml 11/03/18 [Last Taken Unknown] sucralfate 1 gram tablet 1 g PEG QID #112 tab 11/03/18 [Last Taken Unknown] Carbamide Peroxide [Debrox] 10 drp EACH EAR Q30D 12/22/18 [Last Taken Unknown] Magnesium Hydroxide [Milk Of Magnesia] 30 ml PEG DAILY PRN 12/22/18 [Last Taken Unknown] Montelukast Sodium [Singulair] 10 mg PEG DAILY 12/22/18 [Last Taken Unknown] Omeprazole [Prilosec] 2.5 ml PEG DAILY 12/22/18 [Last Taken Unknown] Potassium Chloride [Potassium Chloride 40 meq/15ml Liquid] 15 ml PEG DAILY@0600 12/22/18 [Last Taken Unknown] calcium carbonate 1,177 mg chewable tablet 1,177 mg PO QID 02/09/19 [Last Taken Unknown] ziprasidone HCl 20 mg capsule 20 mg FEEDING TUBE DAILY #30 cap 06/07/19 [Last Taken Unknown] guaifenesin 100 mg/5 mL oral liquid 200 mg FEEDING TUBE Q6H 07/04/19 [Last Taken Unknown] docusate sodium 50 mg/5 mL oral liquid 20 ml FEEDING TUBE DAILY 08/02/19 [Last Taken Unknown] Potassium Chloride 7.5 ml PEG 1800 12/06/19 [Last Taken Unknown] Sodium Chloride/Aloe Vera [[place] Saline Nasal Gel] 1 appl INTRANASAL PRN PRN 12/06/19 [Last Taken Unknown] Exam - Exam Vital Signs: Vital Signs - Last Taken Temp 36.8 C 12/06/19 19:38 Pulse 77 12/06/19 19:38 Resp 18 12/06/19 19:38 BP 102/63 12/06/19 19:38 Pulse Ox 95 12/06/19 19:38 Constitutional: Present: Alert, Oriented x3, Cooperative ENT Exam: Present: hearing grossly normal Eye Exam: bilateral eye: normal inspection Respiratory: Present: other - coarse lung sounds throughout Cardiovascular/Chest: Present: regular rate, rhythm, no murmur Peripheral Pulses: radial (R): 2+, radial (L): 2+ Abdomen: Present: Normal bowel sounds, soft, nontender, nondistended, no rebound tenderness, other - PEG tube in place without drainage Skin Exam: Present: normal color, warm/dry, no cyanosis, skin rash - mild erythema around PEG site (he reports this is normal) Neurologic: Present: alert, normal mood/affect, oriented x 3 Eye contact: Present: cooperative, good eye contact, normal speech Diagnostic Studies: Abnormal Lab Results 12/06/19 12/06/19 12/06/19 Range/Units 10:00 10:00 10:40 WBC 18.5 H (4.0-10.5) K/mm3 Hgb 13.0 L (13.5-18.0) gm/dL Hct 40.3 L (42.0-52.0) % MCH 26.2 L (27-31) pg RDW 15.2 H (11.5-14.0) % Immature Gran % (Auto) 0.60 H (0.001-0.429) % Immature Gran # (Auto) 0.11 H (0.000-0.0310) K/mm3 Neutrophils % 89.9 H (42-75.0) % Lymphocytes % 2.1 L (20-51) % Neutrophils # 16.6 H (1.3-6.0) K/mm3 Lymphocytes # 0.39 L (1.5-3.5) k/mm3 Monocytes # 1.3 H (0.0-1.0) k/mm3 pCO2 29.3 L (35.0-48.0) mmHg pO2 67.8 L (83.0-108.0) mmHg Total CO2 26.5 H (19.0-24.0) mmol/L Base Excess 4.1 H (-2.0-3.0) mmol/L ABG pH 7.56 H (7.35-7.45) Anion Gap 14.6 H (6.8-13.8) mmol/L BUN 35 H (6-23) mg/dL BUN/Creatinine Ratio 31.3 H (9.0-21.6) ALT 18 L (19-67) U/L B-Natriuretic Peptide 192 H (5-175) pg/mL Albumin 3.2 L (3.4-5.0) gm/dl Laboratory Results WBC 18.5 K/mm3 (4.0-10.5) H 12/06/19 10:00 RBC 4.96 M/mm3 (4.7-6.0) 12/06/19 10:00 Hgb 13.0 gm/dL (13.5-18.0) L 12/06/19 10:00 Hct 40.3 % (42.0-52.0) L 12/06/19 10:00 MCV 81.3 fl (78-100) 12/06/19 10:00 MCH 26.2 pg (27-31) L 12/06/19 10:00 MCHC 32.3 g/dl (32-36) 12/06/19 10:00 RDW 15.2 % (11.5-14.0) H 12/06/19 10:00 Plt Count 316 K/mm3 (150-450) 12/06/19 10:00 MPV 11.1 fl (8-11.3) 12/06/19 10:00 Immature Gran % (Auto) 0.60 % (0.001-0.429) H 12/06/19 10:00 Immature Gran # (Auto) 0.11 K/mm3 (0.000-0.0310) H 12/06/19 10:00 Neutrophils % 89.9 % (42-75.0) H 12/06/19 10:00 Lymphocytes % 2.1 % (20-51) L 12/06/19 10:00 Monocytes % 6.9 % (0.0-9) 12/06/19 10:00 Eosinophils % 0.2 % (0.0-3.0) 12/06/19 10:00 Basophils % 0.3 % (0.0-1.0) 12/06/19 10:00 Nucleated RBC % 0.0 k/mm3 (0-1) 12/06/19 10:00 Neutrophils # 16.6 K/mm3 (1.3-6.0) H 12/06/19 10:00 Lymphocytes # 0.39 k/mm3 (1.5-3.5) L 12/06/19 10:00 Monocytes # 1.3 k/mm3 (0.0-1.0) H 12/06/19 10:00 Eosinophils # 0.0 k/mm3 (0.0-0.7) 12/06/19 10:00 Absolute Basophils 0.1 k/mm3 (0.0-0.1) 12/06/19 10:00 D-Dimer 0.44 ug/mL (0.19-0.49) D 12/06/19 10:00 pCO2 29.3 mmHg (35.0-48.0) L 12/06/19 10:40 pO2 67.8 mmHg (83.0-108.0) L 12/06/19 10:40 HCO3 25.6 mmol/L (21.0-28.0) 12/06/19 10:40 Total CO2 26.5 mmol/L (19.0-24.0) H 12/06/19 10:40 Base Excess 4.1 mmol/L (-2.0-3.0) H 12/06/19 10:40 ABG pH 7.56 (7.35-7.45) H 12/06/19 10:40 ABG O2 Sat (Measured) 95.8 % (94.0-98.0) 12/06/19 10:40 Sodium 141 mmol/L (132-142) 12/06/19 10:00 Plasma Sodium 141 mmol/L (130-142) 12/06/19 10:00 Potassium 3.8 mmol/L (3.4-4.6) 12/06/19 10:00 Chloride 103 mmol/L (97-106) 12/06/19 10:00 Carbon Dioxide 27.2 mmol/L (24-32.6) 12/06/19 10:00 Anion Gap 14.6 mmol/L (6.8-13.8) H 12/06/19 10:00 BUN 35 mg/dL (6-23) H 12/06/19 10:00 Creatinine 1.12 mg/dL (0.4-1.4) 12/06/19 10:00 Est GFR (Non-Af Amer) 70 mL/min (60-130) 12/06/19 10:00 BUN/Creatinine Ratio 31.3 (9.0-21.6) H 12/06/19 10:00 Random Glucose 109 mg/dL (70-110) 12/06/19 10:00 Lactic Acid, Venous 1.5 mmol/L (0.4-2.0) 12/06/19 10:00 Calcium 8.9 mg/dL (7.9-10.9) 12/06/19 10:00 Calcium Adj for Albumin 9.2 mg/dL (8.4-10.2) 12/06/19 10:00 Total Bilirubin 0.7 mg/dL (0.0-1.1) 12/06/19 10:00 AST 23 U/L (0-48) 12/06/19 10:00 ALT 18 U/L (19-67) L 12/06/19 10:00 Alkaline Phosphatase 151 U/L (50-170) 12/06/19 10:00 Troponin I Less than 0.017 ng/mL (0.00-0.10) 12/06/19 10:00 B-Natriuretic Peptide 192 pg/mL (5-175) H 12/06/19 10:00 Total Protein 7.4 gm/dL (6.2-8.2) 12/06/19 10:00 Albumin 3.2 gm/dl (3.4-5.0) L 12/06/19 10:00 Chlamy pneumoniae PCR Not detected (NotDetected) 12/06/19 10:29 Adenovirus (PCR) Not detected (NotDetected) 12/06/19 10:29 B. pertussis DNA (PCR) Not detected (NotDetected) 12/06/19 10:29 Coronavirus OC43 (PCR) Not detected (NotDetected) 12/06/19 10:29 Coronavirus HKU1 (PCR) Not detected (NotDetected) 12/06/19 10:29 Coronavirus 229E (PCR) Not detected (NotDetected) 12/06/19 10:29 Coronavirus NL63 (PCR) Not detected (NotDetected) 12/06/19 10:29 Human Metapneumovir PCR Not detected (NotDetected) 12/06/19 10:29 Influenza A (H1) PCR Not detected (NotDetected) 12/06/19 10:29 Influenza A (H1N1) PCR Not detected (NotDetected) 12/06/19 10:29 Influenza A (H3) PCR Not detected (NotDetected) 12/06/19 10:29 Influenza B (RT-PCR) Not detected (NotDetected) 12/06/19 10:29 M. pneumoniae (PCR) Not detected (NotDetected) 12/06/19 10:29 Parainfluenza 1 (PCR) Not detected (NotDetected) 12/06/19 10:29 Parainfluenza 2 (PCR) Not detected (NotDetected) 12/06/19 10:29 Parainfluenza 3 (PCR) Not detected (NotDetected) 12/06/19 10:29 Parainfluenza 4 (PCR) Not detected (NotDetected) 12/06/19 10:29 RSV (PCR) Not detected (NotDetected) 12/06/19 10:29 Rhinovirus (PCR) Not detected (NotDetected) 12/06/19 10:29 Group A Strep Rapid Negative (NEGATIVE) 12/06/19 10:29 Assessment/Plan - Narrative Narrative: Samuel is a 64 yo male with acute respiratory failure secondary to pneumonia of right mid and lower lobe. He will be placed on oxygen to keep sats >90%, will treat with albuterol/ipratropium, cornet, azithromycin, and rocephin. He will be tested for COVID 19 due to inpatient treatment with cough and fever although I suspect that this is a bacterial pneumonia. He does not report an aspiration choking episode but this is a possibility with his PEG tube and his continued orally drinking fluids. He will be placed in COVID precautions. Will monitor CBC. Expect inpatient for 2-3 midnights. - Assessment/Plan (1) Acute respiratory failure with hypoxia Problem: Acute (2) Right middle lobe pneumonia Problem: Acute Qualifiers: Pneumonia type: due to unspecified organism Qualified Code(s): J18.9 - Pneumonia, unspecified organism (3) Right lower lobe pneumonia Problem: Acute Qualifiers: Pneumonia type: due to unspecified organism Qualified Code(s): J18.9 - Pneumonia, unspecified organism
[2019-12-07] MEDS: METOCLOPRAMIDE HCL GT SCH ×4 (04:11→21:31)
[2019-12-07] MEDS ORDERED: SODIUM CHLORIDE 45 SPRAY BTL NS PRN (07:45)
[2019-12-07] MEDS: ASPIRIN 81 MG TAB.CHEW PEG SCH (08:12)
[2019-12-07] MEDS: POTASSIUM CHLORIDE 40 MEQ/15 ML LIQUID PEG SCH (08:12)
[2019-12-07] MEDS: FUROSEMIDE 40 MG TABLET PEG SCH (08:13)
[2019-12-07] MEDS: CALCIUM CARBONATE 500 MG TAB.CHEW PO SCH ×4 (08:13→21:28)
[2019-12-07] MEDS: ZIPRASIDONE HCL 20 MG CAPSULE PEG SCH (08:13)
[2019-12-07] MEDS: CHOLECALCIFEROL 5,000 UNIT TABLET PEG SCH (08:13)
[2019-12-07] MEDS: MONTELUKAST SODIUM 10 MG TABLET PEG SCH (08:13)
[2019-12-07] MEDS: SIMETHICONE 40 MG/0.6 ML BTL PEG SCH ×4 (08:14→21:28)
[2019-12-07] MEDS: SUCRALFATE 1 G/10 ML UDC PEG SCH ×4 (08:14→21:27)
[2019-12-07] MEDS: DOCUSATE SODIUM PEG SCH (08:14)
[2019-12-07] MEDS: OMEPRAZOLE 2 MG/ML BTL PEG SCH (08:14)
[2019-12-07] MEDS: AZITHROMYCIN 500 MG in DEXTROSE 5 % IN WATER 250 ML IV SCH ×2 (12:56)
[2019-12-07] MEDS ORDERED: NORMAL SALINE 1,000 ML IV PRN (14:43)
[2019-12-07] MEDS: LORATADINE 5 MG/5 ML SYRUP PEG SCH (17:35)
--- NOTE | 2019-12-07 23:35 | PN ---
Subjective - Date and Time Seen Date: 12/07/19 Time: 16:00 Subjective Narrative: Samuel was weaned to room air and remains 94%. He denies fever, chills, shortness of breath. He does report cough continues. Objective - Vitals Vitals: Last Vital Signs Temp 37.4 C 12/07/19 22:00 Pulse 69 12/07/19 22:00 Resp 18 12/07/19 22:00 BP 89/56 L 12/07/19 22:00 Pulse Ox 93 12/07/19 22:00 - Exam Constitutional: Present: Alert, Oriented x3, Cooperative ENT Exam: Present: hearing grossly normal Respiratory: Present: other - coarse diffuse Cardiovascular/Chest: Present: regular rate, rhythm, no murmur Abdomen: Present: Normal bowel sounds, soft, nontender, nondistended, other - PEG tube site Assessment/Plan Plan Narrative: Clinically improving. Weaned from room air. Continue azithromycin and rocephin and monitor over night. If he remains on room air overnight he may be discharged to [facility] tomorrow after COVID testing returns. - Problems/Diagnosis (1) Acute respiratory failure with hypoxia Problem: Resolved (2) Right middle lobe pneumonia Problem: Acute Qualifiers: Pneumonia type: due to unspecified organism Qualified Code(s): J18.9 - Pneumonia, unspecified organism (3) Right lower lobe pneumonia Problem: Acute Qualifiers: Pneumonia type: due to unspecified organism Qualified Code(s): J18.9 - Pneumonia, unspecified organism
[2019-12-08] MEDS: METOCLOPRAMIDE HCL GT SCH ×4 (05:12→22:02)
[2019-12-08] MEDS: POTASSIUM CHLORIDE 40 MEQ/15 ML LIQUID PEG SCH (05:12)
[2019-12-08 06:34] LABS: Hematocrit 39.5 % (42.0-52.0); Hemoglobin 12.5 gm/dL (13.5-18.0); Mean Cell Volume 82.5 fl (78-100); Mean Corpuscular Hemoglobin 26.1 pg (27-31); Mean Corpuscular Hgb Conc 31.6 g/dl (32-36); Mean Platelet Volume 11.6 fl (8-11.3); Neutrophil # 6.1 K/mm3 (1.3-6.0); Platelet Count 275 K/mm3 (150-450); Red Blood Count 4.79 M/mm3 (4.7-6.0); Red Cell Distribution Width 15.1 % (11.5-14.0); White Blood Count 8.2 K/mm3 (4.0-10.5)
[2019-12-08 06:47] LABS: Albumin * 2.8 gm/dl (3.4-5.0); Anion Gap 11.2 mmol/L (6.8-13.8); Bilirubin, Total 0.3 mg/dL (0.0-1.1); Ca. Corrected For Albumin 9.4 mg/dL (8.4-10.2); Calcium * 8.8 mg/dL (7.9-10.9); Potassium 4.2 mmol/L (3.4-4.6); Total Protein 6.8 gm/dL (6.2-8.2)
[2019-12-08] MEDS: SUCRALFATE 1 G/10 ML UDC PEG SCH ×4 (09:53→20:15)
[2019-12-08] MEDS: DOCUSATE SODIUM PEG SCH (09:53)
[2019-12-08] MEDS: SIMETHICONE 40 MG/0.6 ML BTL PEG SCH ×4 (09:54→21:57)
[2019-12-08] MEDS: FUROSEMIDE 40 MG TABLET PEG SCH (09:59)
[2019-12-08] MEDS: ZIPRASIDONE HCL 20 MG CAPSULE PEG SCH (09:59)
[2019-12-08] MEDS: CALCIUM CARBONATE 500 MG TAB.CHEW PO SCH ×4 (09:59→20:14)
[2019-12-08] MEDS: ASPIRIN 81 MG TAB.CHEW PEG SCH (10:00)
[2019-12-08] MEDS: OMEPRAZOLE 2 MG/ML BTL PEG SCH (10:30)
[2019-12-08] MEDS: MONTELUKAST SODIUM 10 MG TABLET PEG SCH (10:30)
[2019-12-08] MEDS: CHOLECALCIFEROL 5,000 UNIT TABLET PEG SCH (10:30)
[2019-12-08] MEDS ORDERED: Lytes/Yerba Santa 240 APPL BTL MM PRN (11:15)
[2019-12-08] MEDS: AZITHROMYCIN 500 MG in DEXTROSE 5 % IN WATER 250 ML IV SCH ×2 (13:10)
--- NOTE | 2019-12-08 15:08 | PN ---
Subjective - Date and Time Seen Date: 12/08/19 Time: 14:58 Subjective Narrative: Samuel Pham is a 64-year-old male patient of April Pak and Doctor Williams Gonzalez DO. He is a resident at the [facility]. He was admitted for pneumonia and placed in the negative pressure room 26 and [place] bed testing was completed. Results came back not detected about 20 minutes ago. I came to let them know he would be discharged going back to the [facility] but when we called the [facility] they refused to accept him. It was 2:50 PM in the afternoon. Therefore he will be with us through the weekend. He is clinically improved with his pneumonia. His white count has dropped from 18,400- 8200. The rest of his CBC and chemistries are unremarkable. His chest x-ray shows infiltrates consistent with pneumonia. I will continue antibiotics p.o. through the weekend and continue respiratory therapy treatments. Objective - Review of Systems Generalized/Overall Review: Reports: No Symptoms Reported EENTM: Reports: No Symptoms Reported Respiratory: Reports: Cough, Shortness of Breath - With exertion Cardiac: Reports: No Symptoms Reported Abdominal: Reports: No Symptoms Reported Genitourinary Symptoms: Reports: No Symptoms Reported Musculoskeletal Complaints: Reports: No Symptoms Reported Neurological: Reports: No Symptoms Reported Skin: Reports: No Symptoms Reported Endocrine: Reports: No Symptoms Reported - Vitals Vitals: Last Vital Signs Temp 36.4 C 12/08/19 14:22 Pulse 75 12/08/19 14:22 Resp 16 12/08/19 14:22 BP 105/61 12/08/19 14:22 Pulse Ox 93 12/08/19 14:22 - Abnormal Lab Findings Abnormal Lab Findings: Abnormal Lab Results 12/08/19 12/08/19 Range/Units 06:28 06:28 Hgb 12.5 L (13.5-18.0) gm/dL Hct 39.5 L (42.0-52.0) % MCH 26.1 L (27-31) pg MCHC 31.6 L (32-36) g/dl RDW 15.1 H (11.5-14.0) % MPV 11.6 H (8-11.3) fl Lymphocytes % 10.8 L (20-51) % Monocytes % 10.7 H (0.0-9) % Eosinophils % 3.6 H (0.0-3.0) % Neutrophils # 6.1 H (1.3-6.0) K/mm3 Lymphocytes # 0.89 L (1.5-3.5) k/mm3 Sodium 144 H (132-142) mmol/L Plasma Sodium 144 H (130-142) mmol/L Chloride 109 H (97-106) mmol/L Random Glucose 114 H (70-110) mg/dL ALT 15 L (19-67) U/L Albumin 2.8 L (3.4-5.0) gm/dl - EKG/Xray Findings Interpretation: Reviewed by me - Exam Constitutional: Present: Alert, Oriented x3, Cooperative, Well developed, Well nourished, No distress ENT Exam: Present: normal ENT inspection, hearing grossly normal, pharynx normal, TMs normal Neck: Present: non-tender, full range of motion, supple, normal inspection Breasts: Present: Exam deferred, Nontender Respiratory: Present: chest non-tender, normal breath sounds, no respiratory distress, no accessory muscle use, rhonchi Cardiovascular/Chest: Present: normal peripheral pulses, regular rate, rhythm, no chest tenderness, no edema, no gallop, no JVD, no murmur, no rub Abdomen: Present: Normal bowel sounds, soft, nontender, nondistended, no rebound tenderness, no hepatospenomegaly, no masses /Rectal: Present: Exam deferred Extremity: Present: normal range of motion, non-tender, normal inspection, no pedal edema, no calf tenderness, normal capillary refill Skin Exam: Present: normal color, warm/dry, no cyanosis Lymphatic: Present: no adenopathy Neurologic: Present: financial institution manager II-XII nml as tested, normal cerebellar test, no motor/sensory deficits, alert, normal mood/affect, oriented x 3 Appearance: Present: appropriate appearance, appropriate insight, neat, no memory impairment Eye contact: Present: cooperative, good eye contact. Absent: normal speech Thoughts: Present: normal thought pattern, no apparent hallucination Assessment/Plan Plan Narrative: 1. Start cefdinir 300 mg twice daily 2. Finish azithromycin 3. Continue respiratory therapy treatments - Problems/Diagnosis (1) Right lower lobe pneumonia Problem: Acute Qualifiers: Pneumonia type: due to unspecified organism Qualified Code(s): J18.9 - Pneumonia, unspecified organism (2) Right middle lobe pneumonia Problem: Acute Qualifiers: Pneumonia type: due to unspecified organism Qualified Code(s): J18.9 - Pneumonia, unspecified organism (3) Factor V Leiden Problem: Chronic (4) Schizoaffective disorder, depressive type Problem: Chronic (5) Seizures Problem: Chronic (6) Weakness Problem: Chronic
[2019-12-08] MEDS: LORATADINE 5 MG/5 ML SYRUP PEG SCH (16:36)
[2019-12-08] MEDS: ALBUTEROL SULFATE/IPRATROPIUM 3 ML NEBU IH PRN (17:08)
[2019-12-08] MEDS ORDERED: ACETYLCYSTEINE 200 MG/ML VIAL ONE (17:15)
[2019-12-08] MEDS: ACETYLCYSTEINE 200 MG/ML VIAL IH SCH ×2 (17:29→18:09)
[2019-12-08] MEDS: ALBUTEROL SULFATE 2.5 MG/0.5 ML VIAL.NEB IH SCH ×2 (17:30→18:09)
[2019-12-08] MEDS: CEFDINIR 300 MG CAPSULE PO SCH (22:05)
[2019-12-09] MEDS: METOCLOPRAMIDE HCL GT SCH ×4 (04:25→22:41)
[2019-12-09] MEDS: ALBUTEROL SULFATE 2.5 MG/0.5 ML VIAL.NEB IH SCH ×5 (05:55→18:09)
[2019-12-09] MEDS: ACETYLCYSTEINE 200 MG/ML VIAL IH SCH ×2 (05:59→18:10)
[2019-12-09 06:30] LABS: Hematocrit 40.1 % (42.0-52.0); Hemoglobin 12.6 gm/dL (13.5-18.0); Mean Cell Volume 81.3 fl (78-100); Mean Corpuscular Hemoglobin 25.6 pg (27-31); Mean Corpuscular Hgb Conc 31.4 g/dl (32-36); Mean Platelet Volume 11.5 fl (8-11.3); Neutrophil # 6.8 K/mm3 (1.3-6.0); Neutrophil % 72.7 % (42-75.0); Platelet Count 307 K/mm3 (150-450); Red Blood Count 4.93 M/mm3 (4.7-6.0); Red Cell Distribution Width 15.1 % (11.5-14.0); White Blood Count 9.4 K/mm3 (4.0-10.5)
[2019-12-09] MEDS: POTASSIUM CHLORIDE 40 MEQ/15 ML LIQUID PEG SCH (06:37)
[2019-12-09 06:42] LABS: Albumin * 2.9 gm/dl (3.4-5.0); Anion Gap 12.7 mmol/L (6.8-13.8); BUN/Creatinine Ratio 22.2 (9.0-21.6); Bilirubin, Total 0.5 mg/dL (0.0-1.1); Ca. Corrected For Albumin 8.9 mg/dL (8.4-10.2); Calcium * 8.3 mg/dL (7.9-10.9); Carbon Dioxide 27.8 mmol/L (24-32.6); Potassium 3.5 mmol/L (3.4-4.6)
[2019-12-09] MEDS: SUCRALFATE 1 G/10 ML UDC PEG SCH ×4 (08:57→20:14)
[2019-12-09] MEDS: FUROSEMIDE 40 MG TABLET PEG SCH (08:57)
[2019-12-09] MEDS: CHOLECALCIFEROL 5,000 UNIT TABLET PEG SCH (08:57)
[2019-12-09] MEDS: ZIPRASIDONE HCL 20 MG CAPSULE PEG SCH (08:58)
[2019-12-09] MEDS: DOCUSATE SODIUM PEG SCH (08:58)
[2019-12-09] MEDS: SIMETHICONE 40 MG/0.6 ML BTL PEG SCH ×4 (08:58→20:14)
[2019-12-09] MEDS: OMEPRAZOLE 2 MG/ML BTL PEG SCH (08:58)
[2019-12-09] MEDS: ASPIRIN 81 MG TAB.CHEW PEG SCH (08:58)
[2019-12-09] MEDS: CEFDINIR 300 MG CAPSULE PO SCH ×2 (08:58→20:15)
[2019-12-09] MEDS: CALCIUM CARBONATE 500 MG TAB.CHEW PO SCH ×4 (08:59→20:15)
[2019-12-09] MEDS: MONTELUKAST SODIUM 10 MG TABLET PEG SCH (08:59)
--- NOTE | 2019-12-09 10:13 | PN ---
Subjective - Date and Time Seen Date: 12/09/19 Time: 08:00 Objective - Review of Systems Generalized/Overall Review: Reports: No Symptoms Reported EENTM: Reports: No Symptoms Reported Respiratory: Reports: Cough, Stridor, Wheezing Cardiac: Reports: No Symptoms Reported Abdominal: Reports: No Symptoms Reported Genitourinary Symptoms: Reports: No Symptoms Reported Musculoskeletal Complaints: Reports: No Symptoms Reported Neurological: Reports: No Symptoms Reported Skin: Reports: No Symptoms Reported Endocrine: Reports: No Symptoms Reported - Vitals Vitals: Last Vital Signs Temp 36.8 C 12/09/19 06:33 Pulse 78 12/09/19 08:57 Resp 21 H 12/09/19 06:33 BP 108/61 12/09/19 08:57 Pulse Ox 90 L 12/09/19 06:33 - Abnormal Lab Findings Abnormal Lab Findings: Abnormal Lab Results 12/09/19 12/09/19 Range/Units 06:15 06:15 Hgb 12.6 L (13.5-18.0) gm/dL Hct 40.1 L (42.0-52.0) % MCH 25.6 L (27-31) pg MCHC 31.4 L (32-36) g/dl RDW 15.1 H (11.5-14.0) % MPV 11.5 H (8-11.3) fl Lymphocytes % 12.5 L (20-51) % Monocytes % 10.6 H (0.0-9) % Neutrophils # 6.8 H (1.3-6.0) K/mm3 Lymphocytes # 1.17 L (1.5-3.5) k/mm3 BUN/Creatinine Ratio 22.2 H (9.0-21.6) Albumin 2.9 L (3.4-5.0) gm/dl - EKG/Xray Findings EKG: T-Wave inversion - On lead II of the rhythm strip. V5 is upright on the twelve-lead and downward on the rhythm strip, atrial fibrillation, other - 18 beat cecelia of ventricular tachycardia this morning on the rhythm strip EKG read: Interp. by me Interpretation: Reviewed by me - Exam Constitutional: Present: Alert, Oriented x3, Cooperative, Well developed, Well nourished, No distress ENT Exam: Present: normal ENT inspection, muffled/hoarse voice Neck: Present: non-tender, full range of motion, supple, normal inspection Breasts: Present: Exam deferred Respiratory: Present: chest non-tender, rhonchi, stridor, wheezing Cardiovascular/Chest: Present: normal peripheral pulses, regular rate, rhythm, no chest tenderness, no edema, no gallop, no JVD, no murmur, no rub Abdomen: Present: Normal bowel sounds, soft, nontender, nondistended, no rebound tenderness, no hepatospenomegaly, no masses /Rectal: Present: Exam deferred Extremity: Present: normal range of motion, non-tender, normal inspection, no pedal edema, no calf tenderness, normal capillary refill Skin Exam: Present: normal color, warm/dry, no cyanosis Lymphatic: Present: no adenopathy Neurologic: Present: manager merchandise II-XII nml as tested, motor weakness Appearance: Present: appropriate appearance Eye contact: Present: cooperative, good eye contact Thoughts: Present: no apparent hallucination, islam Assessment/Plan Plan Narrative: Lynn had an uneventful night. His vital signs are normal this morning. He continues to have some respiratory stridor with mucus in the larger bronchial tree. He is in no respiratory distress. He is using his Mendel and it is helping mobilize his secretions. No change in therapy anticipated. Discharge plan for Wednesday. - Problems/Diagnosis (1) Right lower lobe pneumonia Problem: Acute Qualifiers: Pneumonia type: due to unspecified organism Qualified Code(s): J18.9 - Pneumonia, unspecified organism (2) Right middle lobe pneumonia Problem: Acute Qualifiers: Pneumonia type: due to unspecified organism Qualified Code(s): J18.9 - Pneumonia, unspecified organism (3) Factor V Leiden Problem: Chronic (4) Schizoaffective disorder, depressive type Problem: Chronic (5) Seizures Problem: Chronic (6) Weakness Problem: Chronic
[2019-12-09] MEDS: AZITHROMYCIN 250 MG TABLET PO SCH (17:02)
[2019-12-09] MEDS: LORATADINE 5 MG/5 ML SYRUP PEG SCH (17:03)
[2019-12-09] MEDS: ALBUTEROL SULFATE/IPRATROPIUM 3 ML NEBU IH PRN (23:14)
[2019-12-10] MEDS: METOCLOPRAMIDE HCL GT SCH ×4 (05:22→21:36)
[2019-12-10] MEDS: POTASSIUM CHLORIDE 40 MEQ/15 ML LIQUID PEG SCH (05:23)
[2019-12-10] MEDS: ALBUTEROL SULFATE 2.5 MG/0.5 ML VIAL.NEB IH SCH ×4 (06:11→18:07)
[2019-12-10] MEDS: ACETYLCYSTEINE 200 MG/ML VIAL IH SCH ×2 (06:13→18:07)
[2019-12-10 07:05] LABS: Hematocrit 43.6 % (42.0-52.0); Hemoglobin 13.7 gm/dL (13.5-18.0); Mean Cell Volume 81.5 fl (78-100); Mean Corpuscular Hemoglobin 25.6 pg (27-31); Mean Corpuscular Hgb Conc 31.4 g/dl (32-36); Mean Platelet Volume 11.3 fl (8-11.3); Neutrophil # 4.8 K/mm3 (1.3-6.0); Neutrophil % 65.3 % (42-75.0); Platelet Count 337 K/mm3 (150-450); Red Blood Count 5.35 M/mm3 (4.7-6.0); Red Cell Distribution Width 15.2 % (11.5-14.0); White Blood Count 7.4 K/mm3 (4.0-10.5)
[2019-12-10 07:15] LABS: Albumin * 3.3 gm/dl (3.4-5.0); Anion Gap 17.7 mmol/L (6.8-13.8); Bilirubin, Total 0.6 mg/dL (0.0-1.1); Ca. Corrected For Albumin 9.5 mg/dL (8.4-10.2); Calcium * 9.3 mg/dL (7.9-10.9); Carbon Dioxide 25.5 mmol/L (24-32.6); Potassium 4.2 mmol/L (3.4-4.6); Total Protein 7.7 gm/dL (6.2-8.2)
[2019-12-10 07:22] LABS: BUN/Creatinine Ratio 19.8 (9.0-21.6)
[2019-12-10] MEDS: SUCRALFATE 1 G/10 ML UDC PEG SCH ×4 (08:07→21:23)
[2019-12-10] MEDS: CALCIUM CARBONATE 500 MG TAB.CHEW PO SCH ×4 (08:07→21:25)
[2019-12-10] MEDS: DOCUSATE SODIUM PEG SCH (08:07)
[2019-12-10] MEDS: ZIPRASIDONE HCL 20 MG CAPSULE PEG SCH (08:07)
[2019-12-10] MEDS: CHOLECALCIFEROL 5,000 UNIT TABLET PEG SCH (08:08)
[2019-12-10] MEDS: ASPIRIN 81 MG TAB.CHEW PEG SCH (08:08)
[2019-12-10] MEDS: FUROSEMIDE 40 MG TABLET PEG SCH (08:08)
[2019-12-10] MEDS: MONTELUKAST SODIUM 10 MG TABLET PEG SCH (08:08)
[2019-12-10] MEDS: CEFDINIR 300 MG CAPSULE PO SCH ×2 (08:08→21:25)
[2019-12-10] MEDS: SIMETHICONE 40 MG/0.6 ML BTL PEG SCH ×4 (08:08→21:22)
[2019-12-10] MEDS: OMEPRAZOLE 2 MG/ML BTL PEG SCH (08:09)
[2019-12-10] MEDS: AZITHROMYCIN 250 MG TABLET PO SCH (08:09)
--- NOTE | 2019-12-10 11:57 | PN ---
Subjective - Date and Time Seen Date: 12/10/19 Time: 11:48 Objective - Review of Systems Generalized/Overall Review: Reports: No Symptoms Reported, Weakness EENTM: Reports: No Symptoms Reported Respiratory: Reports: Cough, Stridor Cardiac: Reports: No Symptoms Reported Abdominal: Reports: No Symptoms Reported Genitourinary Symptoms: Reports: No Symptoms Reported Musculoskeletal Complaints: Reports: No Symptoms Reported Neurological: Reports: Pre-existing Deficit Skin: Reports: No Symptoms Reported Endocrine: Reports: No Symptoms Reported - Vitals Vitals: Last Vital Signs Temp 36.7 C 12/10/19 11:13 Pulse 74 12/10/19 11:13 Resp 20 12/10/19 11:13 BP 97/53 12/10/19 11:13 Pulse Ox 94 12/10/19 11:13 - Abnormal Lab Findings Abnormal Lab Findings: Abnormal Lab Results 12/10/19 12/10/19 Range/Units 06:38 06:38 MCH 25.6 L (27-31) pg MCHC 31.4 L (32-36) g/dl RDW 15.2 H (11.5-14.0) % Monocytes % 9.7 H (0.0-9) % Eosinophils % 3.7 H (0.0-3.0) % Lymphocytes # 1.47 L (1.5-3.5) k/mm3 Sodium 144 H (132-142) mmol/L Plasma Sodium 144 H (130-142) mmol/L Anion Gap 17.7 H (6.8-13.8) mmol/L ALT 16 L (19-67) U/L Albumin 3.3 L (3.4-5.0) gm/dl - Exam Constitutional: Present: Alert, Oriented x3, Cooperative, Well developed, Well nourished, No distress ENT Exam: Present: normal ENT inspection, hearing grossly normal, pharynx normal Neck: Present: non-tender Breasts: Present: Exam deferred Respiratory: Present: no respiratory distress, rhonchi, stridor Cardiovascular/Chest: Present: normal peripheral pulses, regular rate, rhythm, no chest tenderness, no edema, no gallop, no JVD, no murmur, no rub Abdomen: Present: Normal bowel sounds, soft, nontender, nondistended, no rebound tenderness, no hepatospenomegaly, no masses /Rectal: Present: Exam deferred, External genitalia normal Extremity: Present: normal range of motion, non-tender, normal inspection Skin Exam: Present: normal color, warm/dry, no cyanosis Lymphatic: Present: no adenopathy Neurologic: Present: mba intern II-XII nml as tested, alert Appearance: Present: appropriate appearance, neat, impaired insight Eye contact: Present: cooperative Thoughts: Present: normal thought pattern, no apparent hallucination Assessment/Plan Plan Narrative: Samuel continues to do well without any interval change from yesterday. His lab is stable. His lungs still have some stridor but they are clearing some. He continues to use his Mendel. He will be returned to the [facility] tomorrow. - Problems/Diagnosis (1) Right lower lobe pneumonia Problem: Acute Qualifiers: Pneumonia type: due to unspecified organism Qualified Code(s): J18.9 - Pneumonia, unspecified organism (2) Right middle lobe pneumonia Problem: Acute Qualifiers: Pneumonia type: due to unspecified organism Qualified Code(s): J18.9 - Pneumonia, unspecified organism (3) Factor V Leiden Problem: Chronic (4) Schizoaffective disorder, depressive type Problem: Chronic (5) Seizures Problem: Chronic (6) Weakness Problem: Chronic
[2019-12-10] MEDS: LORATADINE 5 MG/5 ML SYRUP PEG SCH (16:39)
[2019-12-11] MEDS: METOCLOPRAMIDE HCL GT SCH (04:49)
[2019-12-11] MEDS: ALBUTEROL SULFATE 2.5 MG/0.5 ML VIAL.NEB IH SCH (06:01)
[2019-12-11] MEDS: ACETYLCYSTEINE 200 MG/ML VIAL IH SCH (06:02)
[2019-12-11 06:04] LABS: Hematocrit 41.1 % (42.0-52.0); Hemoglobin 12.9 gm/dL (13.5-18.0); Mean Cell Volume 81.5 fl (78-100); Mean Corpuscular Hemoglobin 25.6 pg (27-31); Mean Corpuscular Hgb Conc 31.4 g/dl (32-36); Mean Platelet Volume 10.8 fl (8-11.3); Neutrophil # 5.9 K/mm3 (1.3-6.0); Platelet Count 317 K/mm3 (150-450); Red Blood Count 5.04 M/mm3 (4.7-6.0); Red Cell Distribution Width 15.1 % (11.5-14.0); White Blood Count 8.2 K/mm3 (4.0-10.5)
[2019-12-11 06:20] LABS: Anion Gap 14.2 mmol/L (6.8-13.8); BUN/Creatinine Ratio 21.3 (9.0-21.6); Bilirubin, Total 0.4 mg/dL (0.0-1.1); Ca. Corrected For Albumin 9.6 mg/dL (8.4-10.2); Calcium * 9.1 mg/dL (7.9-10.9); Carbon Dioxide 28.7 mmol/L (24-32.6); Potassium 3.9 mmol/L (3.4-4.6)
[2019-12-11] MEDS: POTASSIUM CHLORIDE 40 MEQ/15 ML LIQUID PEG SCH (06:31)
[2019-12-11] MEDS: CHOLECALCIFEROL 5,000 UNIT TABLET PEG SCH (08:01)
[2019-12-11] MEDS: SUCRALFATE 1 G/10 ML UDC PEG SCH (08:02)
[2019-12-11] MEDS: MONTELUKAST SODIUM 10 MG TABLET PEG SCH (08:02)
[2019-12-11] MEDS: CEFDINIR 300 MG CAPSULE PO SCH (08:02)
[2019-12-11] MEDS: FUROSEMIDE 40 MG TABLET PEG SCH (08:02)
[2019-12-11] MEDS: ZIPRASIDONE HCL 20 MG CAPSULE PEG SCH (08:02)
[2019-12-11] MEDS: AZITHROMYCIN 250 MG TABLET PO SCH (08:02)
[2019-12-11] MEDS: ASPIRIN 81 MG TAB.CHEW PEG SCH (08:02)
[2019-12-11] MEDS: CALCIUM CARBONATE 500 MG TAB.CHEW PO SCH (08:03)
[2019-12-11] MEDS: SIMETHICONE 40 MG/0.6 ML BTL PEG SCH (08:03)
[2019-12-11] MEDS: DOCUSATE SODIUM PEG SCH (08:05)
[2019-12-11] MEDS: OMEPRAZOLE 2 MG/ML BTL PEG SCH (08:29)
--- NOTE | 2019-12-11 09:19 | DS ---
(1) Acute respiratory failure with hypoxia Problem: Resolved (2) Right middle lobe pneumonia Problem: Acute Qualifiers: Pneumonia type: due to unspecified organism Qualified Code(s): J18.9 - Pneumonia, unspecified organism (3) Right lower lobe pneumonia Problem: Acute Qualifiers: Pneumonia type: due to unspecified organism Qualified Code(s): J18.9 - Pneumonia, unspecified organism Date of Discharge:: 12/11/19 Hospital Course: Samuel is a 64 yo male with history of stroke with PEG tube. He has had episodes of pneumonia in the past presumed to be aspiration pneumonia. He was admitted due to acute respiratory failure secondary to right middle and right lower lobe pneumonia. There was no reported choking episode. He does admit to drinking water despite being NPO with feeding and fluid to be done strictly through PEG. He had development of coughing with gurgling lung sounds which was his indicator to him that he might have pneumonia he was sent to the ER from his residence at [facility]. Chest xray confirmed pneumonia and he was admitted to inpatient due to oxygen dropping to 86% on room air in the ER. He does not use oxygen at [facility]. He was placed on 2lpm of oxygen via NC. He also had a respiratory panel swab completed along with swab for SARS-COV-2. He gradually improved and was weaned off oxygen. His respiratory panel and SARS-COV-2 came back negative indicating this was likely a bacterial pneumonia. He was started on rocephin/azithromycin from the beginning and continued to improve. He is medically stable for discharge today. He will be continued on 5 more days of cefdinir to complete antibiotic course. He will be discharged back to [facility] in SNF with PT, OT, and ST for strengthening secondary to weakness sustained from this acute illness. No other changes in his routine medications, feeding, or activity. Procedures Performed: none Results and Findings: Pending Mircobiology Results 12/06/19 10:30 Blood Blood Culture - Preliminary NO GROWTH AFTER 48 HOURS 12/06/19 10:00 Blood Blood Culture - Preliminary NO GROWTH AFTER 48 HOURS Lab Pending Results 12/06/19 10:00: WBC 18.5 H, RBC 4.96, Hgb 13.0 L, Hct 40.3 L, MCV 81.3, MCH 26.2 L, MCHC 32.3, RDW 15.2 H, Plt Count 316, MPV 11.1, Immature Gran % (Auto) 0.60 H, Immature Gran # (Auto) 0.11 H, Neutrophils % 89.9 H, Lymphocytes % 2.1 L, Monocytes % 6.9, Eosinophils % 0.2, Basophils % 0.3, Nucleated RBC % 0.0, Neutrophils # 16.6 H, Lymphocytes # 0.39 L, Monocytes # 1.3 H, Eosinophils # 0.0, Absolute Basophils 0.1 12/06/19 10:00: Sodium 141, Plasma Sodium 141, Potassium 3.8, Chloride 103, Carbon Dioxide 27.2, Anion Gap 14.6 H, BUN 35 H, Creatinine 1.12, Est GFR (Non- Af Amer) 70, BUN/Creatinine Ratio 31.3 H, Random Glucose 109, Calcium 8.9, Calcium Adj for Albumin 9.2, Total Bilirubin 0.7, AST 23, ALT 18 L, Alkaline Phosphatase 151, Troponin I Less than 0.017, B-Natriuretic Peptide 192 H, Total Protein 7.4, Albumin 3.2 L 12/06/19 10:00: D-Dimer 0.44 D 12/06/19 10:00: Lactic Acid, Venous 1.5 12/06/19 10:29: Group A Strep Rapid Negative 12/06/19 10:29: Chlamy pneumoniae PCR Not detected, Adenovirus (PCR) Not detected, B. pertussis DNA (PCR) Not detected, Coronavirus OC43 (PCR) Not detected, Coronavirus HKU1 (PCR) Not detected, Coronavirus 229E (PCR) Not detected, Coronavirus NL63 (PCR) Not detected, Human Metapneumovir PCR Not detected, Influenza A (H1) PCR Not detected, Influenza A (H1N1) PCR Not detected, Influenza A (H3) PCR Not detected, Influenza B (RT-PCR) Not detected, M. pneumoniae (PCR) Not detected, Parainfluenza 1 (PCR) Not detected, Parainflue nza 2 (PCR) Not detected, Parainfluenza 3 (PCR) Not detected, Parainfluenza 4 (PCR) Not detected, RSV (PCR) Not detected, Rhinovirus (PCR) Not detected 12/06/19 10:40: pCO2 29.3 L, pO2 67.8 L, HCO3 25.6, Total CO2 26.5 H, Base Excess 4.1 H, ABG pH 7.56 H, ABG O2 Sat (Measured) 95.8 12/06/19 14:15: SARS-CoV-2 (PCR) Not detected 12/08/19 06:28: WBC 8.2 D, RBC 4.79, Hgb 12.5 L, Hct 39.5 L, MCV 82.5, MCH 26.1 L, MCHC 31.6 L, RDW 15.1 H, Plt Count 275, MPV 11.6 H, Immature Gran % (Auto) 0.20, Immature Gran # (Auto) 0.02, Neutrophils % 74.0, Lymphocytes % 10.8 L, Monocytes % 10.7 H, Eosinophils % 3.6 H, Basophils % 0.7, Nucleated RBC % 0.0, Neutrophils # 6.1 H, Lymphocytes # 0.89 L, Monocytes # 0.9, Eosinophils # 0.3, Absolute Basophils 0.1 12/08/19 06:28: Sodium 144 H, Plasma Sodium 144 H, Potassium 4.2, Chloride 109 H, Carbon Dioxide 28.0, Anion Gap 11.2, BUN 22, Creatinine 1.05, Est GFR (Non-Af Amer) 76, BUN/Creatinine Ratio 21.0, Random Glucose 114 H, Calcium 8.8, Calcium Adj for Albumin 9.4, Total Bilirubin 0.3, AST 21, ALT 15 L, Alkaline Phosphatase 127, Total Protein 6.8, Albumin 2.8 L 12/09/19 06:15: WBC 9.4, RBC 4.93, Hgb 12.6 L, Hct 40.1 L, MCV 81.3, MCH 25.6 L, MCHC 31.4 L, RDW 15.1 H, Plt Count 307, MPV 11.5 H, Immature Gran % (Auto) 0.30, Immature Gran # (Auto) 0.03, Neutrophils % 72.7, Lymphocytes % 12.5 L, Monocytes % 10.6 H, Eosinophils % 3.0, Basophils % 0.9, Nucleated RBC % 0.0, Neutrophils # 6.8 H, Lymphocytes # 1.17 L, Monocytes # 1.0, Eosinophils # 0.3, Absolute Basophils 0.1 12/09/19 06:15: Sodium 142, Plasma Sodium 142, Potassium 3.5, Chloride 105, Carbon Dioxide 27.8, Anion Gap 12.7, BUN 22, Creatinine 0.99, Est GFR (Non-Af Amer) 81, BUN/Creatinine Ratio 22.2 H, Random Glucose 94, Calcium 8.3, Calcium Adj for Albumin 8.9, Total Bilirubin 0.5, AST 20, ALT 19, Alkaline Phosphatase 136, Total Protein 7.0, Albumin 2.9 L 12/10/19 06:38: WBC 7.4 D, RBC 5.35, Hgb 13.7, Hct 43.6, MCV 81.5, MCH 25.6 L, MCHC 31.4 L, RDW 15.2 H, Plt Count 337, MPV 11.3, Immature Gran % (Auto) 0.30, Immature Gran # (Auto) 0.02, Neutrophils % 65.3, Lymphocytes % 20.0, Monocytes % 9.7 H, Eosinophils % 3.7 H, Basophils % 1.0, Nucleated RBC % 0.0, Neutrophils # 4.8, Lymphocytes # 1.47 L, Monocytes # 0.7, Eosinophils # 0.3, Absolute Basophils 0.1 12/10/19 06:38: Sodium 144 H, Plasma Sodium 144 H, Potassium 4.2, Chloride 105, Carbon Dioxide 25.5, Anion Gap 17.7 H, BUN 23, Creatinine 1.16, Est GFR (Non-Af Amer) 67, BUN/Creatinine Ratio 19.8, Random Glucose 109, Calcium 9.3, Calcium Adj for Albumin 9.5, Total Bilirubin 0.6, AST 19, ALT 16 L, Alkaline Phosphatase 131, Total Protein 7.7, Albumin 3.3 L 12/11/19 00:50: WBC 8.2, RBC 5.04, Hgb 12.9 L, Hct 41.1 L, MCV 81.5, MCH 25.6 L, MCHC 31.4 L, RDW 15.1 H, Plt Count 317, MPV 10.8, Immature Gran % (Auto) 0.20, Immature Gran # (Auto) 0.02, Neutrophils % 72.0, Lymphocytes % 12.7 L, Monocytes % 9.2 H, Eosinophils % 4.9 H, Basophils % 1.0, Nucleated RBC % 0.0, Neutrophils # 5.9, Lymphocytes # 1.04 L, Monocytes # 0.8, Eosinophils # 0.4, Absolute Basophils 0.1 04/13/20 00:50: Sodium 144 H, Plasma Sodium 144 H, Potassium 3.9, Chloride 105, Carbon Dioxide 28.7, Anion Gap 14.2 H, BUN 26 H, Creatinine 1.22, Est GFR (Non- Af Amer) 64, BUN/Creatinine Ratio 21.3, Random Glucose 94, Calcium 9.1, Calcium Adj for Albumin 9.6, Total Bilirubin 0.4, AST 18, ALT 15 L, Alkaline Phosphatase 120, Total Protein 7.0, Albumin 3.0 L Discharge Location: [facility] Disposition: SNF Condition: Good Level of Care: SNF Discharge Activity: Activity as tolerated Discharge Diet: Resume usual diet Residential Therapy: Physical Therapy, Occupation Therapy, Speech Therapy Referrals: April Cantrell ARNP [Primary Care Provider] - (Routine Hospital follow up at [facility]) Problem Oriented Discharge Instructions to Patient/Family: Community-Acquired Pneumonia, Adult, [id number] Additional Patient Instructions (free text): Discharging back to [facility], please call and fax discharge information to them. Prescriptions (Any new or edited meds): Cefdinir [Omnicef Suspension] 6 ml PO BID #60 ml Transmission Status: Pending to [facility] Complete Home Medications List: Complete Home Medication List: Saliva Stimulant Agents Comb.3 [Biotene Moisturizing Mouth] 1 spray MM DAILY PRN 11/26/16 Simethicone [Infants' Gas Relief] 4.8 ml PEG QID 11/26/16 cetirizine 10 mg tablet 10 mg PEG QPM 03/18/18 cholecalciferol (vitamin D3) 125 mcg (5,000 unit) capsule 5,000 unit PEG DAILY 03/18/18 furosemide 40 mg tablet 40 mg PEG DAILY 03/18/18 acetaminophen 325 mg capsule 650 mg PEG Q4H PRN cap 06/09/18 albuterol sulfate 2.5 mg IH QID 8 Days #96 ml 06/09/18 acetylcysteine 200 mg/mL (20 %) solution 3 ml IH BID 1 Days #6 ml 10/04/18 aspirin 81 mg chewable tablet 81 mg PEG DAILY #28 tab 11/03/18 atropine 1 % eye drops 1 drp SL QID PRN 25 Days #5 ml 11/03/18 ipratropium 0.5 mg-albuterol 3 mg (2.5 mg base)/3 mL nebulization soln 3 ml IH Q4H PRN #90 ml 11/03/18 metoclopramide HCl 5 mg/5 mL oral solution 5 ml PEG Q6H ml 11/03/18 sucralfate 1 gram tablet 1 g PEG QID #112 tab 11/03/18 Carbamide Peroxide [Debrox] 10 drp EACH EAR Q30D 12/22/18 Magnesium Hydroxide [Milk Of Magnesia] 30 ml PEG DAILY PRN 12/22/18 Montelukast Sodium [Singulair] 10 mg PEG DAILY 12/22/18 Omeprazole [Prilosec] 2.5 ml PEG DAILY 12/22/18 Potassium Chloride [Potassium Chloride 40 meq/15ml Liquid] 15 ml PEG DAILY@0600 12/22/18 calcium carbonate 1,177 mg chewable tablet 1,177 mg PO QID 02/09/19 ziprasidone HCl 20 mg capsule 20 mg FEEDING TUBE DAILY #30 cap 06/07/19 guaifenesin 100 mg/5 mL oral liquid 200 mg FEEDING TUBE Q6H 07/04/19 docusate sodium 50 mg/5 mL oral liquid 20 ml FEEDING TUBE DAILY 08/02/19 Potassium Chloride 7.5 ml PEG 1800 12/06/19 Sodium Chloride/Aloe Vera [Oklee Saline Nasal Gel] 1 appl INTRANASAL PRN PRN 12/06/19 Cefdinir [Omnicef Suspension] 6 ml PO BID #60 ml 12/11/19
[2019-12-11 09:25] VITALS: BP 108/71
== END 2019-12-11 09:55 | DRG 193 ==
LOC: ER 09:48 → MS 12:11 → SCU 18:42 → MS 12-07 03:56
PROVIDERS: ADMIT Family Medicine; ATTEND Family Medicine
CPT/HCPCS: 36415; 36600; 71010; 71045; 80053; 82803; 83519; 83605; 83880; 84484; 85025; 85379; 87040; 87081; 87430; 87633; 93005; 94640; 94760; 96365; 99285; J0131